=== PATIENT | female | born 1935 | race African-American/Black ===

== ENCOUNTER 2018-12-14 19:05 | Emergency (ER) | payer OTHER ==
[2018-12-14 19:18] VITALS: TEMP 98.8; BMI 27.4
--- NOTE | 2018-12-14 21:13 | PDOC ---
History of Present Illness - General Chief Complaint: Pain Stated Complaint: ABD PAIN Time Seen by Provider: 12/14/18 21:12 History Source: Patient Exam Limitations: No Limitations - History of Present Illness Initial Comments: Pt is an 83 yo F, with PMH of HTN (was taken off meds 3 years ago), NIDDM (on metformin), pacemaker (for bradycardia), and diverticulitis, who is presenting with LLQ abdominal pain and decreased appetite x4-5 days. Pt states she had nausea and a couple of bouts of loose stool since she has only been wanting to drink fluids, and not eat solid food, as that was making her abdominal pain worse. PT states the pain is constant, and also worsened by "driving in the car and hitting bumps". Pt states this episode feels similar to her prior episode of diverticulitis. PT denies any recent fevers/chills, headache, vision changes , syncope, chest pain, palpitations, SOB, vomiting, urinary symptoms, constipation, blood in BMs, or leg swelling. Allergies: NKDA PCP: Lore Mota Social: Pt denies any cigarette, alcohol, or drug use. Pt denies any recent travel or sick contacts. Surgical: hysterectomy Family: no relevant history. 12/14/18 23:01 Past History - Travel Traveled outside of the country in the last 30 days: No Close contact w/someone who was outside of country & ill: No - Past Medical History Allergies/Adverse Reactions: Allergies Allergy/AdvReac Type Severity Reaction Status Date / Time Sulfa (Sulfonamide Allergy Verified 12/16/18 17:41 Antibiotics) Home Medications: Ambulatory Orders Metformin HCl [Glucophage] 500 mg PO BIDAC 01/14/15 Aspirin [ASA -] 81 mg PO DAILY 12/15/18 Multivitamin [Multiple Vitamins] 1 each PO DAILY 12/15/18 Amox-Tr/K Cl [Augmentin - 875Mg Tablet] 1 tab PO TID #21 tablet 12/16/18 Ondansetron [Zofran *Odt*] 4 mg SL TID #21 od.tablet 12/16/18 Cardiac Disorders: Yes COPD: No Diabetes: Yes HTN: Yes - Surgical History Cardiac Surgery: Yes (ppm pacemaker) - Suicide/Smoking/Psychosocial Hx Smoking History: Never smoked Review of Systems - Review of Systems Able to Perform ROS?: Yes Is the patient limited Indonesian proficient: No Constitutional: Yes: Weight Stable. No: Chills, Diaphoresis, Fever, Loss of Appetite, Malaise, Weakness HEENTM: No: Recent change in vision, Nose Congestion, Throat Pain, Throat Swelling, Difficulty Swallowing Respiratory: No: Cough, Orthopnea, Shortness of Breath Cardiac (ROS): No: Chest Pain, Edema, Irregular Heart Rate, Lightheadedness, Palpitations, Syncope, Chest Tightness ABD/GI: Yes: See HPI, Diarrhea, Nausea, Poor Appetite, Vomiting, Abdominal cramping. No: Abdominal Distended, Blood Streaked Bowels, Constipated, Difficulty Swallowing, Poor Fluid Intake, Rectal Bleeding : No: Burning, Dysuria, Frequency, Hematuria, Pain, Urgency Musculoskeletal: No: Back Pain, Joint Pain, Muscle Pain, Muscle Weakness Integumentary: No: Rash Neurological: No: Headache, Numbness, Weakness, Unsteady Gait, Dizziness Psychiatric: No: Sleep Pattern Change, Change in Appetite Endocrine: No: Increased Urine, Change in Weight Hematologic/Lymphatic: No: Anemia, Blood Clots, Easy Bleeding, Easy Bruising All Other Systems: Reviewed and Negative *Physical Exam - Vital Signs Last Vital Signs Temp Pulse Resp BP Pulse Ox 98.8 F 77 18 180/92 H 99 12/14/18 19:15 12/14/18 19:15 12/14/18 19:15 12/14/18 19:15 12/14/18 19:15 - Physical Exam Comments: HTN on exam, pt afebrile. Pt in NAD, able to stand and lie on the bed comfortably. Overweight body habitus. Pt alert and oriented x3. 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 No midline spinal tenderness, step-offs, or crepitus. Head normocephalic, atraumatic. Eyes PERRLA, EOMI. Oropharynx without erythema or exudates, no LAD b/l. No nasal congestion, hearing intact. Clear heart sounds, S1/S2, no JVD, b/l pedal edema, or heart murmur. Clear lung sounds, no respiratory distress, wheezes, crackles, or accessory muscle use. No abdominal or CVA tenderness to palpation, no rebound, no guarding (no reproducible LLQ TTP). Abdomen soft, non-distended, and with normoactive bowel sounds. Skin without jaundice or rash. 12/14/18 23:11 ED Treatment Course - LABORATORY CBC & Chemistry Diagram: 12/14/18 22:00 12/14/18 22:00 Medical Decision Making - Medical Decision Making Pt was seen at bedside, also will be seen by attending Dr. Valdovinos. Pt presenting with complaints of LLQ abdominal pain, associated with nausea and loose stools. Pt has had episodes of diverticulitis in the past, and pt states this feels similar. Pt has limited risk factors for ischemic colitis (other than age and HTN), but pt also states her pain is worsened by eating. Will evaluate with labs and CT abd/pelvis with contrast (pending renal function labs) . Provided 1 L IV LR, 20 mg IV pepcid, 1 g ofirmev, and 4 mg IV zofran for improvement of discomfort and hydration. Will continue to reassess pt and monitor for symptomatic improvement. 12/14/18 23:12 CBC and CMP generally WNL Trop <.02 UA showed mild UTI, urine culture sent. Unlikely cause of pts symptoms, but will treat if CT negative for acute pathology. Ordered CT abd/pelvis with PO and IV contrast. Pt drinking contrast now. 12/14/18 23:14 PT was signed out to night team for CT scan and further monitoring. 12/17/18 09:05 *DC/Admit/Observation/Transfer Diagnosis at time of Disposition: Diverticulitis - Discharge Dispostion Disposition: HOME Condition at time of disposition: Improved - Referrals Referrals: Anup Camacho DO [Staff Physician] - Tacos Barr MD [Staff Physician] - ON STAFF,NOT [Primary Care Provider] - - Patient Instructions Printed Discharge Instructions: DI for Diverticulitis Additional Instructions: Drink pedialyte/Gatorade throughout the day to replace the water/electrolytes you are losing in the diarrhea. Take Tylenol over the counter for pain. Take as advised on label. I have sent two antibiotics to your pharmacy. Take as advised on label. Do not skip any doses. Do not stop early. Take with food. Follow up with your primary care doctor within 3 days. Your care is not complete until you follow up. Follow up with a cash register mechanic within 3 days. I have provided you with multiple referrals should you need them. Return to the Emergency Department for fever, vomiting, lightheadedness, chest pain, shortness of breath, vomiting blood, blood in stool, increasing pain despite Tylenol use, or any other new, worsening or concerning symptoms. - Post Discharge Activity
[2018-12-14] MEDS ORDERED: FAMOTIDINE 20 MG/50 ML IVPB 20 MG/50 ML MG IVPB ONE ×2 (21:15→21:43)
[2018-12-14] MEDS ORDERED: ACETAMINOPHEN 1000 MG/100 ML VIAL (NON FORMULARY) IVPB ONE (21:16)
[2018-12-14] MEDS ORDERED: LACTATED RINGERS SOLUTION 1000 ML INFUS.BAG IV STA (21:16)
[2018-12-14] MEDS ORDERED: ONDANSETRON 4 MG/2 ML VIAL IVPUSH ONE (21:16)
[2018-12-14] MEDS ORDERED: ACETAMINOPHEN INJECTION 100 ML IVPB ONE (21:42)
[2018-12-14] MEDS ORDERED: ONDANSETRON 4 MG/2 ML VIAL ONE (21:43)
[2018-12-14 22:12] LABS: HYALINE CASTS 4 /lpf (0-8); PH,URINE 5.5 (5.0-8.0); URINE APPEARANCE CLEAR; URINE BACTERIA 7.4 /hpf (NEGATIVE); URINE BILIRUBIN NEGATIVE (NEGATIVE); URINE COLOR YELLOW; URINE GLUCOSE (UA) NEGATIVE (NEGATIVE); URINE KETONE 1+ (NEGATIVE); URINE LEUK ESTERASE 2+ (NEGATIVE); URINE NITRITE NEGATIVE (NEGATIVE); URINE PROTEIN NEGATIVE (NEGATIVE); URINE RBC 1 /hpf (0-4); URINE UROBILINOGEN 0.2 mg/dL (0.2-1.0); URINE WBC 11 /hpf (0-5)
[2018-12-14 22:14] LABS: BASO % 1.2 % (0-2.0); EOS % 4.4 % (0-4.5); HEMOGLOBIN 12.7 GM/dL (10.7-15.3); LYMPH % 23.7 % (8-40); MCH 28.7 pg (25.7-33.7); MCHC 33.3 g/dl (32.0-36.0); MEAN CELL VOLUME 86.2 fl (80-96); MEAN PLT VOLUME 8.8 fl (7.5-11.1); MONO % 8.5 % (3.8-10.2); NEUT % 62.2 % (42.8-82.8); PLATELET COUNT 189 K/MM3 (134-434); RBC 4.41 M/mm3 (3.60-5.2); RDW 14.6 % (11.6-15.6); WHITE BLOOD COUNT 6.4 K/mm3 (4.0-10.0)
[2018-12-14 22:22] LABS: INR 1.19 (0.83-1.09); PROTHROMBIN TIME (PATIENT) 14.1 SEC (9.7-13.0)
[2018-12-14 22:41] LABS: ALBUMIN 3.8 g/dl (3.4-5.0); BILIRUBIN,TOTAL 0.6 mg/dL (0.2-1); BLOOD UREA NITROGEN 12.9 mg/dL (7-18); CALCIUM 9.2 mg/dL (8.5-10.1); CREATININE 0.7 mg/dL (0.55-1.3); POTASSIUM 3.6 mmol/L (3.5-5.1)
--- NOTE | 2018-12-14 22:57 | PDOC ---
Attending Attestation - Resident Resident Name: Juhi Barbaana - ED Attending Attestation I have performed the following: I have examined & evaluated the patient, The case was reviewed & discussed with the resident, I agree w/resident's findings & plan, Exceptions are as noted - HPI HPI: 12/14/18 22:51 83 y/o female c/o atrauamtic lower abd pain, most pronounced on the left, with anorexia and diarrhea for several days - Physicial Exam PE: 12/14/18 22:52 pt is awake, alert, well nourished, in no distress nc, atr perrla, eomi, no icterus cta rrr abd-sft, nd, + mild lq tp, no /r - Medical Decision Making 12/14/18 22:57 Patient is an 83-year-old female who presents with atraumatic lower abdominal pain, with tenderness in left lower quadrant, associated with anorexia and several loose watery stools. Differential diagnosis includes ischemic colitis versus diverticulitis versus gastroenteritis. Will hydrate. We'll obtain CBC/CMP /UA. Will obtain CT that and pelvis with by mouth contrast. Will reassess.
--- NOTE | 2018-12-15 02:24 | PDOC ---
*Physical Exam - Vital Signs Last Vital Signs Temp Pulse Resp BP Pulse Ox 98.8 F 68 20 173/74 H 100 12/14/18 19:15 12/14/18 23:55 12/14/18 23:55 12/14/18 23:55 12/14/18 23:55 <Cathryn Ruiz - Last Filed: 12/15/18 04:13> - Vital Signs Last Vital Signs Temp Pulse Resp BP Pulse Ox 98.8 F 68 20 173/74 H 100 12/14/18 19:15 12/14/18 23:55 12/14/18 23:55 12/14/18 23:55 12/14/18 23:55 <TavonMiguel AngelEdith - Last Filed: 12/15/18 21:42> ED Treatment Course - LABORATORY CBC & Chemistry Diagram: 12/14/18 22:00 12/14/18 22:00 - ADDITIONAL ORDERS Additional order review: Laboratory Results 12/14/18 12/14/18 12/14/18 22:03 22:00 22:00 PT with INR 14.10 H INR 1.19 H Sodium Potassium Chloride Carbon Dioxide Anion Gap BUN Creatinine Est GFR (CKD-EPI)AfAm Est GFR (CKD-EPI)NonAf Random Glucose Calcium Magnesium 2.1 Total Bilirubin AST ALT Alkaline Phosphatase Creatine Kinase Creatine Kinase Index CK-MB (CK-2) Troponin I Total Protein Albumin Lipase Urine Color Yellow Urine Appearance Clear Urine pH 5.5 Ur Specific [place] 1.018 Urine Protein Negative Urine Glucose (UA) Negative Urine Ketones 1+ H Urine Blood Negative Urine Nitrite Negative Urine Bilirubin Negative Urine Urobilinogen 0.2 Ur Leukocyte Esterase 2+ H Urine WBC (Auto) 11 Urine RBC (Auto) 1 Urine Casts (Auto) 4 U Epithel Cells (Auto) 2.0 Urine Bacteria (Auto) 7.4 Blood Type Antibody Screen 12/14/18 12/14/18 12/14/18 22:00 22:00 22:00 PT with INR INR Sodium 140 Potassium 3.6 Chloride 104 Carbon Dioxide 27 Anion Gap 9 BUN 12.9 Creatinine 0.7 Est GFR (CKD-EPI)AfAm 93.52 Est GFR (CKD-EPI)NonAf 80.69 Random Glucose 92 Calcium 9.2 Magnesium Total Bilirubin 0.6 AST 21 ALT 19 Alkaline Phosphatase 64 Creatine Kinase Creatine Kinase Index CK-MB (CK-2) Troponin I Total Protein 7.0 Albumin 3.8 Lipase 77 Urine Color Urine Appearance Urine pH Ur Specific [place] Urine Protein Urine Glucose (UA) Urine Ketones Urine Blood Urine Nitrite Urine Bilirubin Urine Urobilinogen Ur Leukocyte Esterase Urine WBC (Auto) Urine RBC (Auto) Urine Casts (Auto) U Epithel Cells (Auto) Urine Bacteria (Auto) Blood Type O POSITIVE Antibody Screen Negative 12/14/18 22:00 PT with INR INR Sodium Potassium Chloride Carbon Dioxide Anion Gap BUN Creatinine Est GFR (CKD-EPI)AfAm Est GFR (CKD-EPI)NonAf Random Glucose Calcium Magnesium Total Bilirubin AST ALT Alkaline Phosphatase Creatine Kinase 161 Creatine Kinase Index 1.3 CK-MB (CK-2) 2.2 Troponin I < 0.02 Total Protein Albumin Lipase Urine Color Urine Appearance Urine pH Ur Specific [place] Urine Protein Urine Glucose (UA) Urine Ketones Urine Blood Urine Nitrite Urine Bilirubin Urine Urobilinogen Ur Leukocyte Esterase Urine WBC (Auto) Urine RBC (Auto) Urine Casts (Auto) U Epithel Cells (Auto) Urine Bacteria (Auto) Blood Type Antibody Screen 12/14/18 22:00 RBC 4.41 MCV 86.2 MCHC 33.3 RDW 14.6 MPV 8.8 Neutrophils % 62.2 Lymphocytes % 23.7 Monocytes % 8.5 Eosinophils % 4.4 Basophils % 1.2 - Medications Given in the ED: ED Medications Discontinued Medications Generic Name Dose Route Start Last Admin Trade Name Adeola PRN Reason Stop Dose Admin Acetaminophen 1,000 mg 12/14/18 21:16 12/14/18 22:52 Ofirmev Injection - IVPB 12/14/18 21:17 1,000 mg ONCE ONE Administration Famotidine/Sodium Chloride 20 mg in 50 mls @ 100 mls/hr 12/14/18 21:15 22:00 Pepcid 20 Mg Premixed Ivpb - IVPB 12/14/18 21:44 100 mls/hr ONCE ONE Administration Lactated Ringer's 1,000 ml 12/14/18 21:16 12/14/18 22:00 Lactated Ringers Solution IV 12/14/18 21:17 1,000 ml ONCE STA Administration Ondansetron HCl 4 mg 12/14/18 21:16 12/14/18 22:00 Zofran Injection IVPUSH 12/14/18 21:17 4 mg ONCE ONE Administration <Ruiz,Cathryn - Last Filed: 12/15/18 04:13> - LABORATORY CBC & Chemistry Diagram: 12/14/18 22:00 12/14/18 22:00 - ADDITIONAL ORDERS Additional order review: Laboratory Results 12/14/18 12/14/18 12/14/18 22:03 22:00 22:00 PT with INR 14.10 H INR 1.19 H Sodium Potassium Chloride Carbon Dioxide Anion Gap BUN Creatinine Est GFR (CKD-EPI)AfAm Est GFR (CKD-EPI)NonAf Random Glucose Calcium Magnesium 2.1 Total Bilirubin AST ALT Alkaline Phosphatase Creatine Kinase Creatine Kinase Index CK-MB (CK-2) Troponin I Total Protein Albumin Lipase Urine Color Yellow Urine Appearance Clear Urine pH 5.5 Ur Specific [place] 1.018 Urine Protein Negative Urine Glucose (UA) Negative Urine Ketones 1+ H Urine Blood Negative Urine Nitrite Negative Urine Bilirubin Negative Urine Urobilinogen 0.2 Ur Leukocyte Esterase 2+ H Urine WBC (Auto) 11 Urine RBC (Auto) 1 Urine Casts (Auto) 4 U Epithel Cells (Auto) 2.0 Urine Bacteria (Auto) 7.4 Blood Type Antibody Screen 12/14/18 12/14/18 12/14/18 22:00 22:00 22:00 PT with INR INR Sodium 140 Potassium 3.6 Chloride 104 Carbon Dioxide 27 Anion Gap 9 BUN 12.9 Creatinine 0.7 Est GFR (CKD-EPI)AfAm 93.52 Est GFR (CKD-EPI)NonAf 80.69 Random Glucose 92 Calcium 9.2 Magnesium Total Bilirubin 0.6 AST 21 ALT 19 Alkaline Phosphatase 64 Creatine Kinase Creatine Kinase Index CK-MB (CK-2) Troponin I Total Protein 7.0 Albumin 3.8 Lipase 77 Urine Color Urine Appearance Urine pH Ur Specific [place] Urine Protein Urine Glucose (UA) Urine Ketones Urine Blood Urine Nitrite Urine Bilirubin Urine Urobilinogen Ur Leukocyte Esterase Urine WBC (Auto) Urine RBC (Auto) Urine Casts (Auto) U Epithel Cells (Auto) Urine Bacteria (Auto) Blood Type O POSITIVE Antibody Screen Negative 12/14/18 22:00 PT with INR INR Sodium Potassium Chloride Carbon Dioxide Anion Gap BUN Creatinine Est GFR (CKD-EPI)AfAm Est GFR (CKD-EPI)NonAf Random Glucose Calcium Magnesium Total Bilirubin AST ALT Alkaline Phosphatase Creatine Kinase 161 Creatine Kinase Index 1.3 CK-MB (CK-2) 2.2 Troponin I < 0.02 Total Protein Albumin Lipase Urine Color Urine Appearance Urine pH Ur Specific [place] Urine Protein Urine Glucose (UA) Urine Ketones Urine Blood Urine Nitrite Urine Bilirubin Urine Urobilinogen Ur Leukocyte Esterase Urine WBC (Auto) Urine RBC (Auto) Urine Casts (Auto) U Epithel Cells (Auto) Urine Bacteria (Auto) Blood Type Antibody Screen 12/14/18 22:00 RBC 4.41 MCV 86.2 MCHC 33.3 RDW 14.6 MPV 8.8 Neutrophils % 62.2 Lymphocytes % 23.7 Monocytes % 8.5 Eosinophils % 4.4 Basophils % 1.2 - Medications Given in the ED: ED Medications Discontinued Medications Generic Name Dose Route Start Last Admin Trade Name Adeola PRN Reason Stop Dose Admin Acetaminophen 1,000 mg 12/14/18 21:16 12/14/18 22:52 Ofirmev Injection - IVPB 12/14/18 21:17 1,000 mg ONCE ONE Administration Famotidine/Sodium Chloride 20 mg in 50 mls @ 100 mls/hr 12/14/18 21:15 22:00 Pepcid 20 Mg Premixed Ivpb - IVPB 12/14/18 21:44 100 mls/hr ONCE ONE Administration Lactated Ringer's 1,000 ml 12/14/18 21:16 12/14/18 22:00 Lactated Ringers Solution IV 12/14/18 21:17 1,000 ml ONCE STA Administration Ondansetron HCl 4 mg 12/14/18 21:16 12/14/18 22:00 Zofran Injection IVPUSH 12/14/18 21:17 4 mg ONCE ONE Administration <Edith Montes De Oca - Last Filed: 12/15/18 21:42> Medical Decision Making - Medical Decision Making 12/15/18 03:10 Patient Name: RAJEEV NAIDU THIS IS A PRELIMINARY REPORT FROM [facility] DATE OF SERVICE: 2018-12-15 00:59:51 IMAGES: [id number] EXAM: CT ABDOMEN WITH CONTRAST AND CT PELVIS WITH CONTRAST HISTORY: 83-Year-Old Female Assess For Diverticulitis. COMPARISON: None. CONTRAST: 94 mL of Omnipaque intravenous contrast and oral contrast was administered FINDINGS: There are 2 pacing wires identified on the palm gatherer views. Mild basilar atelectasis and scarring. Left lower lobe bulla. Mild liver steatosis. Moderate gallbladder distention. Pancreas spleen adrenal glands and left kidney appear unremarkable. Right kidney peripelvic cysts. No nephrolithiasis. No hydroureter. Moderate arteriosclerosis of the abdominal and pelvic vasculature. Small hiatal hernia with mild nonspecific lower esophageal wall thickening most likely due to esophagitis. Stomach small bowel and appendix appear unremarkable. Moderate nonspecific circumferential wall thickening of the sigmoid colon on axial image 89 and sagittal image 58 and coronal image 53 is most likely due to acute diverticulitis of the sigmoid colon with mild pericolonic fluid from infection and other disease including a mass in the sigmoid colon cannot be excluded. No free air. No abscess. Status post hysterectomy. Moderate bladder distention. Bridging lower thoracic osteophytes. Moderate to severe degenerative disc disease in the lower lumbar spine. IMPRESSION: Moderate nonspecific circumferential wall thickening of the sigmoid colon is most likely due to acute diverticulitis of the sigmoid colon with mild pericolonic fluid from infection and other disease including a mass in the sigmoid colon cannot be excluded. Small hiatal hernia with mild nonspecific lower esophageal wall thickening most likely due to esophagitis 12/15/18 04:13 Pt refusing to stay in the hospital; she wants a trial of PO abx; she will return if she is unable to tolerate PO intake. <Cathryn Ruiz - Last Filed: 12/15/18 04:13> - Medical Decision Making Pt signed out to me by Dr. Valdovinos, see his note. 83 year old female with PMH diverticulitis, HTN, DM presented to ED for lower abdominal pain associated with diarrhea. Initial Vital Signs Temp Pulse Resp BP Pulse Ox 98.8 F 77 18 180/92 H 99 12/14/18 19:15 12/14/18 19:15 12/14/18 19:15 12/14/18 19:15 12/14/18 19:15 Afebrile. No tachycardia. No tachypnea. Hypertensive. No hypoxia on room air. Vital Signs Pulse Rate 68 12/14/18 23:55 Respiratory Rate 20 12/14/18 23:55 Blood Pressure 173/74 H 12/14/18 23:55 O2 Sat by Pulse Oximetry (%) 100 12/14/18 23:55 CBC WBC 6.4 K/mm3 (4.0-10.0) 12/14/18 22:00 RBC 4.41 M/mm3 (3.60-5.2) 12/14/18 22:00 Hgb 12.7 GM/dL (10.7-15.3) 12/14/18 22:00 Hct 38.0 % (32.4-45.2) 12/14/18 22:00 MCV 86.2 fl (80-96) 12/14/18 22:00 MCH 28.7 pg (25.7-33.7) 12/14/18 22:00 MCHC 33.3 g/dl (32.0-36.0) 12/14/18 22:00 RDW 14.6 % (11.6-15.6) 12/14/18 22:00 Plt Count 189 K/MM3 (134-434) 12/14/18 22:00 MPV 8.8 fl (7.5-11.1) 12/14/18 22:00 Absolute Neuts (auto) 4.0 K/mm3 (1.5-8.0) 12/14/18 22:00 Neutrophils % 62.2 % (42.8-82.8) 12/14/18 22:00 Lymphocytes % 23.7 % (8-40) 12/14/18 22:00 Monocytes % 8.5 % (3.8-10.2) 12/14/18 22:00 Eosinophils % 4.4 % (0-4.5) 12/14/18 22:00 Basophils % 1.2 % (0-2.0) 12/14/18 22:00 Nucleated RBC % 0 % (0-0) 12/14/18 22:00 No leukocytosis. No anemia. CMP Sodium 140 mmol/L (136-145) 12/14/18 22:00 Potassium 3.6 mmol/L (3.5-5.1) 12/14/18 22:00 Chloride 104 mmol/L (98-107) 12/14/18 22:00 Carbon Dioxide 27 mmol/L (21-32) 12/14/18 22:00 Anion Gap 9 MMOL/L (8-16) 12/14/18 22:00 BUN 12.9 mg/dL (7-18) 12/14/18 22:00 Creatinine 0.7 mg/dL (0.55-1.3) 12/14/18 22:00 Est GFR (CKD-EPI)AfAm 93.52 12/14/18 22:00 Est GFR (CKD-EPI)NonAf 80.69 12/14/18 22:00 Random Glucose 92 mg/dL (74-106) 12/14/18 22:00 Calcium 9.2 mg/dL (8.5-10.1) 12/14/18 22:00 Magnesium 2.1 mg/dL (1.8-2.4) 12/14/18 22:00 Total Bilirubin 0.6 mg/dL (0.2-1) 12/14/18 22:00 AST 21 U/L (15-37) 12/14/18 22:00 ALT 19 U/L (13-61) 12/14/18 22:00 Alkaline Phosphatase 64 U/L (45-117) 12/14/18 22:00 Creatine Kinase 161 U/L (26-192) 12/14/18 22:00 Creatine Kinase Index 1.3 % (0.0-5.0) 12/14/18 22:00 CK-MB (CK-2) 2.2 ng/mL (0.5-3.6) 12/14/18 22:00 Troponin I < 0.02 ng/ml (0.00-0.05) 12/14/18 22:00 Total Protein 7.0 g/dl (6.4-8.2) 12/14/18 22:00 Albumin 3.8 g/dl (3.4-5.0) 12/14/18 22:00 Lipase 77 U/L (73-393) 12/14/18 22:00 No electrolyte abnormalities. No FRANCISCO. NO transaminitis. Troponin wnl. Lipase wnl. Urine Test Results Urine Color Yellow 12/14/18 22:03 Urine Appearance Clear 12/14/18 22:03 Urine pH 5.5 (5.0-8.0) 12/14/18 22:03 Ur Specific [place] 1.018 (1.010-1.035) 12/14/18 22:03 Urine Protein Negative (NEGATIVE) 12/14/18 22:03 Urine Glucose (UA) Negative (NEGATIVE) 12/14/18 22:03 Urine Ketones 1+ (NEGATIVE) H 12/14/18 22:03 Urine Blood Negative (NEGATIVE) 12/14/18 22:03 Urine Nitrite Negative (NEGATIVE) 12/14/18 22:03 Urine Bilirubin Negative (NEGATIVE) 12/14/18 22:03 Ur Leukocyte Esterase 2+ (NEGATIVE) H 12/14/18 22:03 Positive for UTI. -Will wait on CT report for antibiotic choice. Pending CT imaging report. 12/15/18 04:08 CXR shows no infiltrate, with large heart. -Pending official report. CT report: Name: [facility] DEPARTMENT OF RADIOLOGY Phys: Juliocesar Valdovinos MD : 1935 Age: 83 Sex: F [facility] Acct: [id number] Loc: [address] Exam Date: 12/15/18 Status: [facility] [place] [place] [address] Unit Number: [id number] EXAM#: TYPE/EXAM: RESULT: [id number] CT/ABDOMEN PELVIS CT WITH CONTR HISTORY PROVIDED: Left lower quadrant pain. Sequential axial images were obtained from the domes of the diaphragms through the symphysis pubis following the administration of both oral and intravenous contrast material. The lung bases are clear. The liver is normal in size. It is mildly hypodense in texture consistent with diffuse fatty infiltration. No mass lesions identified within the liver. The spleen, pancreas, adrenal glands and kidneys demonstrate no significant abnormalities. The gallbladder is mildly distended without evidence of calculi. There is no evidence of intra- abdominal or retroperitoneal lymphadenopathy or fluid collections. There is no evidence of pneumoperitoneum, bowel obstruction or intra-abdominal abscess. There is no CT evidence of acute appendicitis. There is marked thickening and irregularity of the sigmoid colon with inflammatory changes in the adjacent mesenteric fat. Multiple diverticula are present and this is consistent with acute sigmoid diverticulitis. No abscess is associated with this process. Clinical correlation and follow-up is now recommended. Examination of the pelvis demonstrates no evidence of pelvic masses, fluid collections or lymphadenopathy. The uterus has been removed. There is no evidence of acute bony pathology. IMPRESSION: Findings consistent with acute sigmoid diverticulitis without abscess formation. Clinical correlation and follow-up recommended. Please see above discussion. Reported By : Landon Yun MD 12/15/18 [id number] I discussed the case with Dr. Robert, IM Attending, who suggested outpatient PO antibiotics. I discussed the options with the patient and her , they stated they prefer to be discharged. Return precautions given to patient. Discharge medications listed below. 12/15/18 21:40 Follow up: Official CXR report: Name: [facility] DEPARTMENT OF RADIOLOGY Phys: Va Barba RESIDENT : 1935 Age: 83 Sex: F [facility] Acct: [id number] Loc: [address] Exam Date: 12/14/18 [place] [place] [address] Unit Number: [id number] ACCESSION # : [id number] EXAM#: TYPE/EXAM: RESULT: RAD/CHEST X-RAY PORTABLE* Chest: Pain. There are no prior studies for comparison. A single view of the chest reveals clear well-aerated lungs, sharp angles and intact bones and soft tissues. There is a large heart, normal aorta and normal erum. There is a left- sided pacemaker with unattached right pacemaker wires. The soft tissues are intact. Impression: No acute chest pathology. Unattached right pacemaker wires. Attached left pacemaker. Clear lungs. Correlation recommended. Reported By: Chris Rodriguez MD 12/15/18718 <Edith Montes De Oca - Last Filed: 12/15/18 21:42> *DC/Admit/Observation/Transfer <Cathryn Ruiz - Last Filed: 12/15/18 04:13> - Discharge Dispostion Decision to Admit order: No <Edith Montes De Oca - Last Filed: 12/15/18 21:42> Diagnosis at time of Disposition: Diverticulitis - Discharge Dispostion Disposition: HOME Condition at time of disposition: Improved - Prescriptions Prescriptions: levoFLOXacin [Levaquin] 750 mg PO DAILY #10 tab metroNIDAZOLE [Flagyl -] 500 mg PO TID #30 tablet - Referrals Referrals: ON STAFF,NOT [Primary Care Provider] - Tacos Barr MD [Staff Physician] - Anup Camacho DO [Staff Physician] - - Patient Instructions Printed Discharge Instructions: DI for Diverticulitis Additional Instructions: Drink pedialyte/Gatorade throughout the day to replace the water/electrolytes you are losing in the diarrhea. Take Tylenol over the counter for pain. Take as advised on label. I have sent two antibiotics to your pharmacy. Take as advised on label. Do not skip any doses. Do not stop early. Take with food. Follow up with your primary care doctor within 3 days. Your care is not complete until you follow up. Follow up with a apple sorter within 3 days. I have provided you with multiple referrals should you need them. Return to the Emergency Department for fever, vomiting, lightheadedness, chest pain, shortness of breath, vomiting blood, blood in stool, increasing pain despite Tylenol use, or any other new, worsening or concerning symptoms. - Post Discharge Activity
[2018-12-15 04:59] VITALS: BP 150/76; PULSE 63
--- NOTE | 2018-12-15 16:37 | EKG ---
Test Reason : Blood Pressure : / mmHG Vent. Rate : 067 BPM Atrial Rate : 067 BPM P-R Int : 162 ms QRS Dur : 088 ms QT Int : 448 ms P-R-T Axes : 051 -18 008 degrees QTc Int : 473 ms NORMAL SINUS RHYTHM POSSIBLE LEFT ATRIAL ENLARGEMENT LEFT VENTRICULAR HYPERTROPHY ANTEROSEPTAL INFARCT , AGE UNDETERMINED ABNORMAL ECG NO PREVIOUS ECGS AVAILABLE Confirmed by PONCHO KELLY MD ([id number]) on 12/15/2018 4:37:18 PM Referred By: Confirmed By:PONCHO KELLY MD
== END 2018-12-15 05:00 | disposition home or self-care (01) ==
LOC: SUPCPDRO 19:05 → JER 19:05
PROC: 3E033GC Introduction of Other Therapeutic Substance into Peripheral Vein, Percutaneous Approach (ICD-10-PCS; principal; 2018-12-14)
PROC: 3E03329 Introduction of Other Anti-infective into Peripheral Vein, Percutaneous Approach (ICD-10-PCS; 2018-12-14)
PROC: 3E033NZ Introduction of Analgesics, Hypnotics, Sedatives into Peripheral Vein, Percutaneous Approach (ICD-10-PCS; 2018-12-14)
PROC: 3E033GC Introduction of Other Therapeutic Substance into Peripheral Vein, Percutaneous Approach (ICD-10-PCS; 2018-12-14)
DX: K57.32 Diverticulitis of large intestine without perforation or abscess without bleeding (principal); I10 Essential (primary) hypertension; E11.9 Type 2 diabetes mellitus without complications; Z79.84 Long term (current) use of oral hypoglycemic drugs
CPT/HCPCS: 36415; 71045-TC-FY; 74177-TC; 80053; 81003; 82550; 82553; 83690; 83735; 84484; 85025; 85610; 86850; 86900; 86901; 87077; 87086; 93005; 93010; 96365; 96366; 96367; 96375; 99283-25; J0131

== ENCOUNTER 2018-12-16 17:29 | Emergency (ER) | payer OTHER, BC ==
[2018-12-16 17:42] VITALS: BMI 31.1
--- NOTE | 2018-12-16 17:42 | PDOC ---
Rapid Medical Evaluation Time Seen by Provider: 12/16/18 17:31 Medical Evaluation: Allergies Allergy/AdvReac Type Severity Reaction Status Date / Time Sulfa (Sulfonamide Allergy Verified 12/14/18 19:18 Antibiotics) I have performed a brief in-person evaluation of this patient. The patient presents with a chief complaint of: c/o Nausea and 2 episodes of NBNB emesis; was just discharged from ED yesterday for acute diverticulitis; patient was placed on abx; denies abdominal pain Pertinent physical exam findings: NAD I have ordered the following: Nothing The patient will proceed to the ED for further evaluation. 12/16/18 17:39
[2018-12-16 18:23] LABS: BASO % 1.1 % (0-2.0); EOS % 2.6 % (0-4.5); HEMATOCRIT 40.1 % (32.4-45.2); HEMOGLOBIN 13.3 GM/dL (10.7-15.3); LYMPH % 18.9 % (8-40); MCH 28.5 pg (25.7-33.7); MCHC 33.1 g/dl (32.0-36.0); MEAN PLT VOLUME 8.8 fl (7.5-11.1); MONO % 7.2 % (3.8-10.2); NEUT % 70.2 % (42.8-82.8); PLATELET COUNT 211 K/MM3 (134-434); RBC 4.66 M/mm3 (3.60-5.2); RDW 14.4 % (11.6-15.6); WHITE BLOOD COUNT 5.8 K/mm3 (4.0-10.0)
[2018-12-16 18:50] LABS: ALBUMIN 3.9 g/dl (3.4-5.0); BILIRUBIN,TOTAL 0.3 mg/dL (0.2-1); BLOOD UREA NITROGEN 11.6 mg/dL (7-18); CALCIUM 9.4 mg/dL (8.5-10.1); CREATININE 0.9 mg/dL (0.55-1.3); POTASSIUM 3.8 mmol/L (3.5-5.1); TOT PROT 7.5 g/dl (6.4-8.2)
--- NOTE | 2018-12-16 20:06 | PDOC ---
History of Present Illness - General Chief Complaint: Nausea/Vomiting Stated Complaint: REACTION TO ANTIBIOTICS Time Seen by Provider: 12/16/18 17:31 History Source: Patient, Old Records Exam Limitations: No Limitations - History of Present Illness Initial Comments: 12/16/18 20:27 HISTORY OF PRESENT ILLNESS: This is an 83-year-old woman past medical history of hypertension currently being treated for diverticulitis presents emergency department for evaluation of vomiting after taking Levaquin. Patient reports she was seen and treated here 2 days ago for diverticulitis and was treated with outpatient antibiotic therapy. Patient reports no difficulties will taking the metronidazole every time she takes her left ofloxacin begins to feel nauseous and has had 2 episodes of nonbilious nonbloody vomiting after taking the Levaquin. Patient states she is able tolerate fluids but can't handle the nauseous feeling. She denies any fevers, chills, headaches, chest pain, shortness of breath. Otherwise patient reports improvement in her symptoms since starting outpatient therapy for diverticulitis. No recent travel or sick contacts. PAST MEDICAL HISTORY: Denies past medical history SURGICAL HISTORY: Denies ALLERGIES: Sulfa REVIEW OF SYSTEMS General/Constitutional: Denies fever or chills. Denies weakness, weight change. HEENT: Denies change in vision. Denies ear pain or discharge. Denies sore throat. Cardiovascular: Denies chest pain or shortness of breath. Respiratory: Denies cough, wheezing, or hemoptysis. Gastrointestinal: see HPI Genitourinary: Denies dysuria, frequency, or change in urination. Musculoskeletal: Denies joint or muscle swelling or pain. Denies neck or back pain. Skin and breasts: Denies rash or easy bruising. Neurologic: Denies headache, vertigo, loss of consciousness, or loss of sensation. Psychiatric: Denies depression or anxiety. Endocrine: Denies increased thirst. Denies abnormal weight change. Hematologic/Lymphatic: Denies anemia, easy bleeding, or history of blood clots. Allergic/Immunologic: Denies hives or skin allergy. Denies latex allergy. PHYSICAL EXAM General Appearance: Well-appearing, appropriately dressed. No apparent distress , no intoxication. Respiratory/Chest: Lungs CTAB. No shortness of breath, chest tenderness, respiratory distress, accessory muscle use. No crackles, rales, rhonchi, stridor , wheezing, dullness Cardiovascular: RRR. S1, S2. No JVD, murmur, bradycardia, tachycardia. Vascular Pulses: Dorsalis-Pedis (R): 2+, Dorsalis-Pedis (L): 2+ Gastrointestinal/Abdominal: Normal bowel sounds. Abdomen soft, non-distended. No tenderness or rebound tenderness. No organomegaly, pulsatile mass, guarding, hernia, hepatomegaly, splenomegaly. Past History - Past Medical History Allergies/Adverse Reactions: Allergies Allergy/AdvReac Type Severity Reaction Status Date / Time Sulfa (Sulfonamide Allergy Verified 12/16/18 17:41 Antibiotics) Home Medications: Ambulatory Orders Metformin HCl [Glucophage] 500 mg PO BIDAC 01/14/15 Aspirin [ASA -] 81 mg PO DAILY 12/15/18 Multivitamin [Multiple Vitamins] 1 each PO DAILY 12/15/18 Amox-Tr/K Cl [Augmentin - 875Mg Tablet] 1 tab PO TID #21 tablet 12/16/18 Ondansetron [Zofran *Odt*] 4 mg SL TID #21 od.tablet 12/16/18 Cardiac Disorders: Yes COPD: No Diabetes: Yes HTN: Yes - Surgical History Cardiac Surgery: Yes (ppm pacemaker) - Suicide/Smoking/Psychosocial Hx Smoking History: Never smoked *Physical Exam - Vital Signs Last Vital Signs Temp Pulse Resp BP Pulse Ox 97.9 F 68 16 177/83 H 99 12/16/18 17:37 12/16/18 17:37 12/16/18 17:37 12/16/18 17:37 12/16/18 17:37 ED Treatment Course - LABORATORY CBC & Chemistry Diagram: 12/16/18 18:08 12/16/18 18:08 - ADDITIONAL ORDERS Additional order review: Laboratory Results 12/16/18 18:08 Sodium 139 Potassium 3.8 Chloride 101 Carbon Dioxide 29 Anion Gap 9 BUN 11.6 Creatinine 0.9 Est GFR (CKD-EPI)AfAm 69.01 Est GFR (CKD-EPI)NonAf 59.55 Random Glucose 113 H Calcium 9.4 Total Bilirubin 0.3 AST 27 ALT 23 Alkaline Phosphatase 65 Total Protein 7.5 Albumin 3.9 12/16/18 18:08 RBC 4.66 MCV 86.0 MCHC 33.1 RDW 14.4 MPV 8.8 Neutrophils % 70.2 Lymphocytes % 18.9 D Monocytes % 7.2 Eosinophils % 2.6 Basophils % 1.1 Medical Decision Making - Medical Decision Making 12/16/18 20:29 A/P: 83-year-old woman with nausea and vomiting after taking Levaquin Labs per RN the Normal saline 1 L IV bolus Zofran 4 mg IV push likely discharge with prescription for Augmentin to replace Levaquin. 12/16/18 22:27 Patient is free of symptoms after receiving 1 dose of Zofran. I will discharge the patient home with instructions to stop her Levaquin to start taking Augmentin 3 times a day for 7 days. Patient has been given a prescription for Zofran to be taken 3 times a day as needed for nausea. Strict return precautions have been provided regarding the patient's diverticulitis from previous ED visit. I discussed the physical exam findings, ancillary test results and final diagnoses with the patient. I answered all of the patient's questions. The patient was satisfied with the care received and felt comfortable with the discharge plan and treatment plan. The patient will call their primary care physician within 24 hours to arrange follow-up and will return to the Emergency Department with any new, persistent or worsening symptoms. Portions of this note have been documented using voice recognition software. As a result, errors may occur in the sculpture instructor process. Effort has been made to correct all grammatical and sculpture instructor error, but some may have been missed. *DC/Admit/Observation/Transfer Diagnosis at time of Disposition: Nausea and vomiting in adult - Discharge Dispostion Disposition: HOME Condition at time of disposition: Stable Decision to Admit order: No - Prescriptions Prescriptions: Amox-Tr/K Cl [Augmentin - 875Mg Tablet] 1 tab PO TID #21 tablet Ondansetron [Zofran *Odt*] 4 mg SL TID #21 od.tablet - Referrals Referrals: ON STAFF,NOT [Primary Care Provider] - - Patient Instructions Additional Instructions: Stop taking the levofloxacin. Continue metronidazole as previously prescribed. Start taking Augmentin 1 tablet 3 times a day until all medications have been completed. You been prescribed Zofran for nausea. Please one tablet on your tongue up to 3 times a day as needed for any nausea. If you are not nauseous you do not need to take this medication. Your emergency department visit is incomplete and to follow-up with your regular doctor. Return to emergency department for any new or worsening symptoms. Thank you very much for choosing us to provide your emergent health care needs. - Post Discharge Activity
--- NOTE | 2018-12-16 20:17 | PDOC ---
*Physical Exam - Vital Signs Last Vital Signs Temp Pulse Resp BP Pulse Ox 97.9 F 68 16 177/83 H 99 12/16/18 17:37 12/16/18 17:37 12/16/18 17:37 12/16/18 17:37 12/16/18 17:37 ED Treatment Course - LABORATORY CBC & Chemistry Diagram: 12/16/18 18:08 12/16/18 18:08 - ADDITIONAL ORDERS Additional order review: Laboratory Results 12/16/18 18:08 Sodium 139 Potassium 3.8 Chloride 101 Carbon Dioxide 29 Anion Gap 9 BUN 11.6 Creatinine 0.9 Est GFR (CKD-EPI)AfAm 69.01 Est GFR (CKD-EPI)NonAf 59.55 Random Glucose 113 H Calcium 9.4 Total Bilirubin 0.3 AST 27 ALT 23 Alkaline Phosphatase 65 Total Protein 7.5 Albumin 3.9 12/16/18 18:08 RBC 4.66 MCV 86.0 MCHC 33.1 RDW 14.4 MPV 8.8 Neutrophils % 70.2 Lymphocytes % 18.9 D Monocytes % 7.2 Eosinophils % 2.6 Basophils % 1.1 Medical Decision Making - Medical Decision Making 12/16/18 20:17 Patient seen by the advanced practice provider under my direct supervision. Ancillary testing reviewed as necessary. I agree with plan as outlined by the advanced practice provider. *DC/Admit/Observation/Transfer Diagnosis at time of Disposition: Nausea and vomiting in adult - Discharge Dispostion Disposition: HOME Condition at time of disposition: Stable - Prescriptions Prescriptions: Amox-Tr/K Cl [Augmentin - 875Mg Tablet] 1 tab PO TID #21 tablet Ondansetron [Zofran *Odt*] 4 mg SL TID #21 od.tablet - Referrals Referrals: ON STAFF,NOT [Primary Care Provider] - - Patient Instructions Additional Instructions: Stop taking the levofloxacin. Continue metronidazole as previously prescribed. Start taking Augmentin 1 tablet 3 times a day until all medications have been completed. You been prescribed Zofran for nausea. Please one tablet on your tongue up to 3 times a day as needed for any nausea. If you are not nauseous you do not need to take this medication. Your emergency department visit is incomplete and to follow-up with your regular doctor. Return to emergency department for any new or worsening symptoms. Thank you very much for choosing us to provide your emergent health care needs. - Post Discharge Activity
[2018-12-16] MEDS ORDERED: SODIUM CHLORIDE 1,000 ML IV STA (20:24)
[2018-12-16] MEDS ORDERED: ONDANSETRON 4 MG/2 ML VIAL IVPUSH ONE (20:24)
[2018-12-16 20:29] VITALS: PULSE 67
[2018-12-16] MEDS ORDERED: ONDANSETRON 4 MG/2 ML VIAL ONE (20:31)
[2018-12-16 23:07] VITALS: BP 187/79; TEMP 97.8
== END 2018-12-16 22:50 | disposition home or self-care (01) ==
LOC: JER 17:29
PROC: 3E0337Z Introduction of Electrolytic and Water Balance Substance into Peripheral Vein, Percutaneous Approach (ICD-10-PCS; principal; 2018-12-16)
PROC: 3E033GC Introduction of Other Therapeutic Substance into Peripheral Vein, Percutaneous Approach (ICD-10-PCS; 2018-12-16)
DX: R11.2 Nausea with vomiting, unspecified (principal); T36.8X5A Adverse effect of other systemic antibiotics, initial encounter; Y92.018 Other place in single-family (private) house as the place of occurrence of the external cause; K57.92 Diverticulitis of intestine, part unspecified, without perforation or abscess without bleeding
CPT/HCPCS: 36415; 80053; 85025; 96361; 96374; 99283-25; J7030

== ENCOUNTER 2023-09-14 18:45 | Emergency (ER) | payer OTHER, BC ==
[2023-09-14 19:03] VITALS: BP 166/60; PULSE 50; RESP 16; TEMP 98.5; BMI 29.2
[2023-09-14 20:41] LABS: BASO % 1.5 % (0-2.0); EOS % 4.6 % (0-4.5); HEMATOCRIT 37.7 % (32.4-45.2); HEMOGLOBIN 12.5 GM/dL (10.7-15.3); LYMPH % 29.7 % (8-40); MCH 28.4 pg (25.7-33.7); MEAN CELL VOLUME 86.1 fl (80-96); MEAN PLT VOLUME 8.9 fl (7.5-11.1); MONO % 9.1 % (3.8-10.2); NEUT % 55.1 % (42.8-82.8); PLATELET COUNT 169 10^3/uL (134-434); RBC 4.38 M/mm3 (3.60-5.2); RDW 16.2 % (11.6-15.6); WHITE BLOOD COUNT 5.8 K/mm3 (4.0-10.0)
[2023-09-14 20:48] LABS: POTASSIUM 4.2 mmol/L (3.5-5.1)
[2023-09-14 20:50] LABS: CALCIUM 8.9 mg/dL (8.5-10.1)
[2023-09-14 20:51] LABS: ALBUMIN 3.8 g/dl (3.4-5.0); BLOOD UREA NITROGEN 15.8 mg/dL (7-18); MAGNESIUM 1.8 mg/dL (1.8-2.4)
[2023-09-14 20:54] LABS: CREATININE 0.8 mg/dL (0.55-1.3); PHOSPHOROUS 3.7 mg/dL (2.5-4.9)
[2023-09-14 20:56] LABS: BILIRUBIN,TOTAL 0.6 mg/dL (0.2-1); TOT PROT 7.4 g/dl (6.4-8.2)
== END 2023-09-14 21:48 | disposition home or self-care (01) ==
LOC: JER 18:45
DX: N63.13 Unspecified lump in the right breast, lower outer quadrant (principal)
CPT/HCPCS: 36415; 76604; 80053; 83735; 84100; 85025; 93005; 93010; 99285-25

== ENCOUNTER → 2023-10-31 | Day surgery (SDC) | payer OTHER, BC | END | disposition home or self-care (01) | LOC: JRADUS-SUR 11:52 | PROVIDERS: ATTEND Registered Nurse | PROC: 0H9T3ZX Drainage of Right Breast, Percutaneous Approach, Diagnostic (ICD-10-PCS; principal; 2023-10-31) | DX: N63.10 Unspecified lump in the right breast, unspecified quadrant (principal) | CPT/HCPCS: 19083; 77065-TC; 87899; 88305-TC; 88342-TC; A4648 ==

== ENCOUNTER 2023-11-18 11:37 | Observation (INO) | payer OTHER, BC ==
[2023-11-18 11:47] VITALS: BMI 29.2
[2023-11-18 12:38] LABS: BASO % 0.5 % (0-2.0); EOS % 1.4 % (0-4.5); HEMATOCRIT 36.4 % (32.4-45.2); HEMOGLOBIN 12.1 GM/dL (10.7-15.3); LYMPH % 28.9 % (8-40); MCH 28.2 pg (25.7-33.7); MCHC 33.1 g/dl (32.0-36.0); MEAN CELL VOLUME 85.1 fl (80-96); MEAN PLT VOLUME 7.8 fl (7.5-11.1); MONO % 9.7 % (3.8-10.2); NEUT % 59.5 % (42.8-82.8); PLATELET COUNT 249 10^3/uL (134-434); RBC 4.28 M/mm3 (3.60-5.2); RDW 15.6 % (11.6-15.6); WHITE BLOOD COUNT 8.3 K/mm3 (4.0-10.0)
[2023-11-18 12:56] LABS: POTASSIUM 4.6 mmol/L (3.5-5.1)
[2023-11-18] MEDS ORDERED: ONDANSETRON 4 MG/2 ML VIAL ONE (12:56)
[2023-11-18 12:58] LABS: ALBUMIN 3.1 g/dl (3.4-5.0); CALCIUM 8.4 mg/dL (8.5-10.1)
[2023-11-18 12:59] LABS: BLOOD UREA NITROGEN 19.4 mg/dL (7-18); MAGNESIUM 1.7 mg/dL (1.8-2.4)
[2023-11-18 13:02] LABS: CREATININE 0.9 mg/dL (0.55-1.3)
[2023-11-18 13:03] LABS: BILIRUBIN,TOTAL 0.7 mg/dL (0.2-1)
[2023-11-18] MEDS: ONDANSETRON 4 MG/2 ML VIAL IVPUSH ONE (13:20)
[2023-11-18] MEDS: SODIUM CHLORIDE 0.9% 500 ML INFUS.BAG IV ONE ×2 (13:20→13:50)
[2023-11-18] MEDS ORDERED: MAGNESIUM SULFATE IN WATER 2 GM/50 ML IVPB IVPB ONE (13:40)
[2023-11-18] MEDS: MAGNESIUM SULFATE IN WATER 2 GM/50 ML IVPB IVPB ONE (13:50)
[2023-11-18 14:35] LABS: PH,URINE 5.5 (5.0-8.0); URINE APPEARANCE CLEAR; URINE BILIRUBIN NEGATIVE (NEGATIVE); URINE COLOR DK YELLOW; URINE GLUCOSE (UA) NEGATIVE (NEGATIVE); URINE KETONE NEGATIVE (NEGATIVE); URINE LEUK ESTERASE NEGATIVE (NEGATIVE); URINE NITRITE NEGATIVE (NEGATIVE); URINE PROTEIN NEGATIVE (NEGATIVE); URINE UROBILINOGEN 0.2 mg/dL (0.2-1.0)
[2023-11-18] MEDS ORDERED: ACETAMINOPHEN 500 MG TABLET (FP) ONE (14:58)
[2023-11-18] MEDS: ACETAMINOPHEN 500 MG TABLET (FP) PO ONE (15:07)
[2023-11-18] MEDS ORDERED: ASPIRIN 81 MG CHEWABLE TABLETS ONE (16:18)
[2023-11-18] MEDS: ASPIRIN 81 MG CHEWABLE TABLETS PO ONE (16:24)
[2023-11-18] MEDS ORDERED: ONDANSETRON *ODT* 4 MG TABLET SL PRN (17:01)
[2023-11-18] MEDS: SODIUM CHLORIDE 1,000 ML IV SCH (18:00)
[2023-11-18] MEDS ORDERED: CARVEDILOL 6.25 MG TABLET (FP) ONE (21:14)
[2023-11-18] MEDS: CARVEDILOL 6.25 MG TABLET (FP) PO SCH (22:16)
[2023-11-18 23:26] VITALS: TEMP 98.2
[2023-11-19 06:33] LABS: BASO % 0.8 % (0-2.0); EOS % 2.3 % (0-4.5); HEMATOCRIT 34.3 % (32.4-45.2); HEMOGLOBIN 11.6 GM/dL (10.7-15.3); LYMPH % 23.6 % (8-40); MCH 28.7 pg (25.7-33.7); MCHC 33.8 g/dl (32.0-36.0); MEAN CELL VOLUME 84.9 fl (80-96); MONO % 10.7 % (3.8-10.2); NEUT % 62.6 % (42.8-82.8); PLATELET COUNT 245 10^3/uL (134-434); RBC 4.04 M/mm3 (3.60-5.2); RDW 15.7 % (11.6-15.6); WHITE BLOOD COUNT 7.4 K/mm3 (4.0-10.0)
[2023-11-19 06:55] LABS: CHLORIDE 108 mmol/L (98-107); POTASSIUM 4.5 mmol/L (3.5-5.1); SODIUM 138 mmol/L (136-145)
[2023-11-19 07:01] LABS: CALCIUM 8.1 mg/dL (8.5-10.1)
[2023-11-19 07:02] LABS: ALBUMIN 2.8 g/dl (3.4-5.0); ANION GAP 4 mmol/L (4-13); BLOOD UREA NITROGEN 11.8 mg/dL (7-18); CO2 26 mmol/L (21-32); GLUCOSE,RANDOM 171 mg/dL (74-106); MAGNESIUM 1.5 mg/dL (1.8-2.4)
[2023-11-19] MEDS: INSULIN ASPART SLIDING SCALE (NOVOLOG) 1 VIAL SQ SCH (07:03)
[2023-11-19] MEDS: metFORMIN HCL 500 MG TABLET (FP) PO SCH (07:03)
[2023-11-19 07:04] LABS: SGPT/ALT 41 U/L (13-61)
[2023-11-19 07:05] LABS: CREATININE 0.7 mg/dL (0.55-1.3); SGOT/AST 36 U/L (15-37)
[2023-11-19 07:06] LABS: BILIRUBIN,TOTAL 0.6 mg/dL (0.2-1); TOT PROT 6.2 g/dl (6.4-8.2)
[2023-11-19 07:07] LABS: ALK PHOS 87 U/L (45-117)
[2023-11-19] MEDS ORDERED: MAGNESIUM SULFATE IN WATER 2 GM/50 ML IVPB IVPB ONE (09:23)
[2023-11-19] MEDS: MAGNESIUM SULFATE IN WATER 2 GM/50 ML IVPB IVPB ONE (09:31)
[2023-11-19] MEDS ORDERED: HEPARIN NA (PORCINE) 5,000 UNITS/ML 1ML VIAL ONE (09:34)
[2023-11-19] MEDS ORDERED: ASPIRIN 81 MG CHEWABLE TABLETS ONE (09:34)
[2023-11-19] MEDS ORDERED: CARVEDILOL 6.25 MG TABLET (FP) ONE (09:34)
[2023-11-19] MEDS: ASPIRIN 81 MG CHEWABLE TABLETS PO SCH (09:44)
[2023-11-19] MEDS: HEPARIN NA (PORCINE) 5,000 UNITS/ML 1ML VIAL SQ SCH (09:44)
[2023-11-19] MEDS ORDERED: INSULIN REGULAR HUMAN 100 UNITS/ML *VIAL ONE (12:21)
[2023-11-19 14:59] VITALS: BP 125/56; PULSE 62; RESP 18
== END 2023-11-19 14:59 | disposition home or self-care (01) ==
LOC: JER 11:37 → JERBED 15:14
PROVIDERS: ADMIT Internal Medicine; ATTEND Nurse Practitioner Acute Care
PROC: 3E023GC Introduction of Other Therapeutic Substance into Muscle, Percutaneous Approach (ICD-10-PCS; principal; 2023-11-18)
PROC: 3E013VG Introduction of Insulin into Subcutaneous Tissue, Percutaneous Approach (ICD-10-PCS; 2023-11-18)
PROC: 3E033GC Introduction of Other Therapeutic Substance into Peripheral Vein, Percutaneous Approach (ICD-10-PCS; 2023-11-18)
PROC: 3E0337Z Introduction of Electrolytic and Water Balance Substance into Peripheral Vein, Percutaneous Approach (ICD-10-PCS; 2023-11-18)
DX: A08.4 Viral intestinal infection, unspecified (principal); I10 Essential (primary) hypertension; R79.89 Other specified abnormal findings of blood chemistry; K57.90 Diverticulosis of intestine, part unspecified, without perforation or abscess without bleeding; E11.9 Type 2 diabetes mellitus without complications; Z95.0 Presence of cardiac pacemaker; R11.0 Nausea; Z88.2 Allergy status to sulfonamides
CPT/HCPCS: 0241U-QW; 36415; 71045-TC-FY; 80053; 81003; 82550; 82962; 83036; 83735; 84484; 85025; 86850; 86900; 86901; 87086; 93005; 93010; 96361; 96365; 96366; 96372; 96375; 99285-25; G0378; J1644

== ENCOUNTER 2023-12-15 10:12 | Inpatient (IN) | payer OTHER, BC ==
[2023-12-15] MEDS: LACTATED RINGERS SOLUTION 1000 ML INFUS.BAG IV STA (11:01)
[2023-12-15] MEDS ORDERED: ACETAMINOPHEN INJECTION 100 ML ONE (11:06)
[2023-12-15] MEDS: ACETAMINOPHEN 1000 MG/100 ML BAG IVPB ONE (11:20)
[2023-12-15 11:31] LABS: BASO % 0.4 % (0-2.0); EOS % 0.1 % (0-4.5); HEMATOCRIT 27.6 % (32.4-45.2); HEMOGLOBIN 9.1 GM/dL (10.7-15.3); LYMPH % 4.7 % (8-40); MCH 27.5 pg (25.7-33.7); MCHC 32.9 g/dl (32.0-36.0); MEAN CELL VOLUME 83.4 fl (80-96); MEAN PLT VOLUME 8.5 fl (7.5-11.1); MONO % 5.9 % (3.8-10.2); NEUT % 88.9 % (42.8-82.8); PLATELET COUNT 207 10^3/uL (134-434); RBC 3.31 M/mm3 (3.60-5.2); WHITE BLOOD COUNT 14.7 K/mm3 (4.0-10.0)
[2023-12-15 11:37] LABS: VENOUS BASE EXCESS -2.8 mmol/L (-2-2); VENOUS O2 SATURATION 63.4 % (70-80); VENOUS PCO2 33.6 mmHg (38-52); VENOUS PH 7.417 (7.310-7.410)
[2023-12-15 11:39] LABS: INR 1.49 (0.83-1.09); PROTHROMBIN TIME (PATIENT) 16.6 SEC (9.7-13.0)
[2023-12-15 11:42] LABS: ACTIVATED PTT 27.7 SECONDS (25.2-36.5)
[2023-12-15 11:52] LABS: POTASSIUM 4.5 mmol/L (3.5-5.1)
[2023-12-15 11:54] LABS: CALCIUM 8.3 mg/dL (8.5-10.1)
[2023-12-15 11:55] LABS: ALBUMIN 2.4 g/dl (3.4-5.0); BLOOD UREA NITROGEN 34.6 mg/dL (7-18)
[2023-12-15] MEDS ORDERED: VANCOMYCIN 1 GRAM (PRE-DOCKED) 1,000 MG/250 ML BAG IVPB ONE (11:57)
[2023-12-15 11:58] LABS: CREATININE 1.3 mg/dL (0.55-1.3)
[2023-12-15] MEDS ORDERED: PIPERACILLIN/TAZOB 3.375 GM 3.375 GM/50 ML BAG IVPB ONE (11:58)
[2023-12-15 11:59] LABS: TOT PROT 6.3 g/dl (6.4-8.2)
[2023-12-15] MEDS: LACTATED RINGERS SOLUTION 1000 ML INFUS.BAG IV ONE ×3 (12:30→14:41)
[2023-12-15] MEDS: PIPERACILLIN/TAZOB 3.375 GM 3.375 GM in DEXTROSE 5%-WATER - 50 ML IVPB ONE (12:31)
[2023-12-15 12:40] LABS: EPI CELLS 22 /uL (0-25.1); HYALINE CASTS 3 /uL (0-3.1); URINE APPEARANCE CLEAR; URINE BACTERIA 23 /uL (0-1359); URINE BILIRUBIN NEGATIVE (NEGATIVE); URINE COLOR YELLOW; URINE GLUCOSE (UA) NEGATIVE (NEGATIVE); URINE KETONE TRACE (NEGATIVE); URINE LEUK ESTERASE NEGATIVE (NEGATIVE); URINE NITRITE NEGATIVE (NEGATIVE); URINE PROTEIN 1+ (NEGATIVE); URINE RBC 29 /uL (0-23.9); URINE WBC 41 /uL (0-25.8)
[2023-12-15] MEDS: VANCOMYCIN 1,000 MG in DEXTROSE 5%-WATER - 250 ML IVPB ONE (13:03)
[2023-12-15] MEDS ORDERED: MIDODRINE HCL 5 MG TABLET ONE (13:33)
[2023-12-15] MEDS: MIDODRINE HCL 5 MG TABLET PO ONE (13:40)
[2023-12-15] MEDS: SODIUM CHLORIDE 500 ML IV STA (13:40)
[2023-12-15] MEDS: NOREPINEPHRINE BITARTRATE 4,000 MCG in DEXTROSE 5%-WATER - 496 ML IV SCH (15:11)
[2023-12-15] MEDS: ENOXAPARIN NA (PORCINE) 80 MG/0.8 ML DISP.SYRIN SQ SCH (17:00)
[2023-12-15] MEDS: PIPERACILLIN/TAZOB 3.375 GM 3.375 GM in DEXTROSE 5%-WATER - 50 ML IVPB SCH ×2 (18:06)
[2023-12-15] MEDS: CEFTRIAXONE 1 GM in DEXTROSE 5%-WATER - 50 ML IVPB SCH (21:37)
[2023-12-15] MEDS: DOXYCYCLINE INJECTION 100 MG in DEXTROSE 5%-WATER 100 ML IVPB SCH (21:37)
[2023-12-15] MEDS: MIDODRINE HCL 5 MG TABLET PO SCH (21:38)
[2023-12-15] MEDS: CHLORHEXIDINE GLUCONATE 4% CLEANSER FOR DECOLONIZATION TP SCH (21:38)
[2023-12-15] MEDS: LACTATED RINGERS SOLUTION 1,000 ML/1,000 ML INFUS.BAG IV STA (21:39)
[2023-12-15] MEDS: MUPIROCIN 2% TOPICAL OINTMENT FOR DECOLONIZATION NS SCH (21:39)
[2023-12-16] MEDS ORDERED: PIPERACILLIN/TAZOB 3.375 GM 3.375 GM in DEXTROSE 5%-WATER - 50 ML IVPB SCH (02:00)
[2023-12-16 08:23] LABS: BASO % 0.7 % (0-2.0); EOS % 1.2 % (0-4.5); HEMATOCRIT 29.8 % (32.4-45.2); LYMPH % 12.7 % (8-40); MCH 27.8 pg (25.7-33.7); MCHC 33.5 g/dl (32.0-36.0); MEAN PLT VOLUME 9.1 fl (7.5-11.1); MONO % 6.5 % (3.8-10.2); NEUT % 78.9 % (42.8-82.8); PLATELET COUNT 212 10^3/uL (134-434); RBC 3.59 M/mm3 (3.60-5.2); RDW 16.8 % (11.6-15.6); WHITE BLOOD COUNT 10.5 K/mm3 (4.0-10.0)
[2023-12-16 08:31] LABS: INR 1.55 (0.83-1.09); PROTHROMBIN TIME (PATIENT) 17.3 SEC (9.7-13.0)
[2023-12-16 08:34] LABS: ACTIVATED PTT 35.2 SECONDS (25.2-36.5)
[2023-12-16 08:42] LABS: POTASSIUM 4.1 mmol/L (3.5-5.1)
[2023-12-16 08:47] LABS: CALCIUM 7.9 mg/dL (8.5-10.1)
[2023-12-16 08:48] LABS: ALBUMIN 2.2 g/dl (3.4-5.0); BLOOD UREA NITROGEN 20.1 mg/dL (7-18)
[2023-12-16 08:49] LABS: MAGNESIUM 1.4 mg/dL (1.8-2.4)
[2023-12-16 08:51] LABS: CREATININE 0.7 mg/dL (0.55-1.3)
[2023-12-16 08:53] LABS: BILIRUBIN,TOTAL 0.7 mg/dL (0.2-1)
[2023-12-16] MEDS: PANTOPRAZOLE 40 MG TABLET PO SCH (10:08)
[2023-12-16] MEDS: VANCOMYCIN/WATER FOR INJ (PEG) 750 MG/150 ML BAG IVPB SCH (11:00)
[2023-12-16] MEDS: INSULIN ASPART SLIDING SCALE (NOVOLOG) 1 VIAL SQ SCH (21:51)
[2023-12-17 08:23] LABS: HEMATOCRIT 29.1 % (32.4-45.2); HEMOGLOBIN 9.8 GM/dL (10.7-15.3); MCH 27.8 pg (25.7-33.7); MCHC 33.6 g/dl (32.0-36.0); MEAN CELL VOLUME 82.7 fl (80-96); MEAN PLT VOLUME 8.6 fl (7.5-11.1); PLATELET COUNT 244 10^3/uL (134-434); RBC 3.52 M/mm3 (3.60-5.2); RDW 16.3 % (11.6-15.6); WHITE BLOOD COUNT 8.6 K/mm3 (4.0-10.0)
[2023-12-17 08:38] LABS: INR 1.31 (0.83-1.09); PROTHROMBIN TIME (PATIENT) 14.7 SEC (9.7-13.0)
[2023-12-17 08:39] LABS: ACTIVATED PTT 28.2 SECONDS (25.2-36.5)
[2023-12-17 08:47] LABS: BLOOD UREA NITROGEN 14.3 mg/dL (7-18); CALCIUM 7.6 mg/dL (8.5-10.1); MAGNESIUM 1.2 mg/dL (1.8-2.4)
[2023-12-17 08:50] LABS: CREATININE 0.7 mg/dL (0.55-1.3)
[2023-12-17 08:51] LABS: PHOSPHOROUS 2.7 mg/dL (2.5-4.9)
[2023-12-17] MEDS: ENOXAPARIN NA (PORCINE) 80 MG/0.8 ML DISP.SYRIN SQ SCH (09:07)
[2023-12-17] MEDS: MAGNESIUM 2GM/50ML STERILE WATER IVPB IVPB ONE (09:37)
[2023-12-17] MEDS ORDERED: INSULIN ASPART SLIDING SCALE (NOVOLOG) 1 VIAL SQ ONE ×2 (11:20→16:22)
[2023-12-17] MEDS: MIDODRINE HCL 5 MG TABLET PO SCH (14:29)
[2023-12-17] MEDS: ATORVASTATIN CA 40 MG TABLET (FP) PO SCH (21:36)
[2023-12-17] MEDS: APIXABAN 5 MG TABLET PO SCH (21:37)
[2023-12-17] MEDS: INSULIN ASPART SLIDING SCALE (NOVOLOG) 1 VIAL SQ SCH (22:39)
[2023-12-18] MEDS: MUPIROCIN 2% TOPICAL OINTMENT FOR DECOLONIZATION NS SCH (08:10)
[2023-12-18] MEDS: CHLORHEXIDINE GLUCONATE 4% CLEANSER FOR DECOLONIZATION TP SCH (08:11)
[2023-12-18 08:14] LABS: HEMATOCRIT 27.8 % (32.4-45.2); HEMOGLOBIN 9.3 GM/dL (10.7-15.3); MCH 27.5 pg (25.7-33.7); MCHC 33.4 g/dl (32.0-36.0); MEAN CELL VOLUME 82.4 fl (80-96); MEAN PLT VOLUME 8.5 fl (7.5-11.1); PLATELET COUNT 246 10^3/uL (134-434); RBC 3.37 M/mm3 (3.60-5.2); RDW 16.6 % (11.6-15.6); WHITE BLOOD COUNT 8.1 K/mm3 (4.0-10.0)
[2023-12-18 08:32] LABS: POTASSIUM 3.7 mmol/L (3.5-5.1)
[2023-12-18 08:36] LABS: CALCIUM 7.8 mg/dL (8.5-10.1)
[2023-12-18 08:37] LABS: ALBUMIN 2.2 g/dl (3.4-5.0); MAGNESIUM 1.5 mg/dL (1.8-2.4)
[2023-12-18 08:40] LABS: CREATININE 0.6 mg/dL (0.55-1.3); PHOSPHOROUS 2.5 mg/dL (2.5-4.9)
[2023-12-18 08:41] LABS: BILIRUBIN,TOTAL 0.8 mg/dL (0.2-1)
[2023-12-18 08:42] LABS: TOT PROT 5.9 g/dl (6.4-8.2)
[2023-12-18] MEDS ORDERED: ASPIRIN 81 MG CHEWABLE TABLETS PO SCH (10:00)
[2023-12-18] MEDS ORDERED: amLODIPine BESYLATE 5 MG TABLET (FP) PO SCH (10:00)
[2023-12-18] MEDS ORDERED: VALSARTAN 80 MG TABLET PO SCH ×2 (10:00)
[2023-12-18] MEDS ORDERED: VALSARTAN 160 MG TABLET PO SCH (10:00)
[2023-12-18] MEDS ORDERED: CARVEDILOL 6.25 MG TABLET (FP) PO SCH (10:00)
[2023-12-18] MEDS: CEFTRIAXONE 1 GM in DEXTROSE 5%-WATER - 50 ML IVPB SCH (11:21)
[2023-12-18] MEDS: MULTIVITAMINS (DAILY MVI) TABLET (FP) PO SCH (11:21)
[2023-12-18] MEDS: VALSARTAN 80 MG TABLET PO SCH (11:21)
[2023-12-18] MEDS: PANTOPRAZOLE 40 MG TABLET PO SCH (11:21)
[2023-12-18] MEDS: MAGNESIUM SULFATE IN WATER 2 GM/50 ML IVPB IVPB ONE (16:35)
[2023-12-19] MEDS: AMPICILLIN - 2 GM in SODIUM CHLORIDE 100 ML IVPB SCH (16:23)
[2023-12-19] MEDS: SODIUM CHLORIDE IVPB SCH (17:50)
[2023-12-19] MEDS: GENTAMICIN IVPB SCH (17:50)
[2023-12-20 08:17] LABS: HEMATOCRIT 26.4 % (32.4-45.2); HEMOGLOBIN 8.7 GM/dL (10.7-15.3); MCH 28.1 pg (25.7-33.7); MCHC 33.1 g/dl (32.0-36.0); MEAN CELL VOLUME 84.9 fl (80-96); PLATELET COUNT 266 10^3/uL (134-434); RBC 3.11 M/mm3 (3.60-5.2); RDW 16.5 % (11.6-15.6); WHITE BLOOD COUNT 8.2 K/mm3 (4.0-10.0)
[2023-12-20 08:33] LABS: POTASSIUM 3.4 mmol/L (3.5-5.1)
[2023-12-20 08:34] LABS: CALCIUM 7.9 mg/dL (8.5-10.1)
[2023-12-20 08:35] LABS: BLOOD UREA NITROGEN 4.5 mg/dL (7-18); MAGNESIUM 1.3 mg/dL (1.8-2.4)
[2023-12-20 08:38] LABS: CREATININE 0.5 mg/dL (0.55-1.3); PHOSPHOROUS 2.3 mg/dL (2.5-4.9)
[2023-12-20 15:26] VITALS: BMI 28.3
[2023-12-21] MEDS: CARVEDILOL 6.25 MG TABLET (FP) PO SCH (10:08)
[2023-12-21] MEDS: POTASSIUM CHLORIDE ORAL LIQUID 20 MEQ/15 ML PO ONE (16:38)
[2023-12-21] MEDS: MAGNESIUM SULFATE IN WATER 2 GM/50 ML IVPB IVPB ONE (16:38)
[2023-12-22 08:34] LABS: POTASSIUM 3.7 mmol/L (3.5-5.1)
[2023-12-22 08:39] LABS: BLOOD UREA NITROGEN 6.2 mg/dL (7-18)
[2023-12-22 08:43] LABS: CREATININE 0.5 mg/dL (0.55-1.3)
[2023-12-22] MEDS: MAGNESIUM 1GM/D5W 100ML - 100 ML IVPB IVPB ONE (14:09)
[2023-12-23 08:35] LABS: BASO % 0.7 % (0-2.0); EOS % 2.2 % (0-4.5); HEMATOCRIT 28.5 % (32.4-45.2); HEMOGLOBIN 9.6 GM/dL (10.7-15.3); MCH 28.2 pg (25.7-33.7); MCHC 33.6 g/dl (32.0-36.0); MEAN PLT VOLUME 7.3 fl (7.5-11.1); NEUT % 74.1 % (42.8-82.8); PLATELET COUNT 302 10^3/uL (134-434); RBC 3.39 M/mm3 (3.60-5.2); RDW 17.1 % (11.6-15.6); WHITE BLOOD COUNT 7.6 K/mm3 (4.0-10.0)
[2023-12-23 09:03] LABS: POTASSIUM 3.6 mmol/L (3.5-5.1)
[2023-12-23 09:07] LABS: ALBUMIN 2.5 g/dl (3.4-5.0); BLOOD UREA NITROGEN 6.6 mg/dL (7-18); CALCIUM 8.3 mg/dL (8.5-10.1)
[2023-12-23 09:11] LABS: BILIRUBIN,TOTAL 0.6 mg/dL (0.2-1); CREATININE 0.7 mg/dL (0.55-1.3); TOT PROT 6.6 g/dl (6.4-8.2)
[2023-12-24 08:35] LABS: BASO % 0.7 % (0-2.0); EOS % 2.2 % (0-4.5); HEMATOCRIT 27.1 % (32.4-45.2); HEMOGLOBIN 8.8 GM/dL (10.7-15.3); LYMPH % 22.5 % (8-40); MCH 28.1 pg (25.7-33.7); MCHC 32.7 g/dl (32.0-36.0); MEAN CELL VOLUME 86.2 fl (80-96); MEAN PLT VOLUME 7.9 fl (7.5-11.1); MONO % 7.2 % (3.8-10.2); NEUT % 67.4 % (42.8-82.8); PLATELET COUNT 287 10^3/uL (134-434); RBC 3.14 M/mm3 (3.60-5.2); RDW 18.1 % (11.6-15.6); WHITE BLOOD COUNT 6.9 K/mm3 (4.0-10.0)
[2023-12-24 08:52] LABS: POTASSIUM 3.5 mmol/L (3.5-5.1)
[2023-12-24 08:57] LABS: CALCIUM 8.3 mg/dL (8.5-10.1)
[2023-12-24 08:58] LABS: ALBUMIN 2.3 g/dl (3.4-5.0); BLOOD UREA NITROGEN 6.4 mg/dL (7-18)
[2023-12-24 09:01] LABS: CREATININE 0.7 mg/dL (0.55-1.3)
[2023-12-24 09:02] LABS: BILIRUBIN,TOTAL 0.6 mg/dL (0.2-1); TOT PROT 6.3 g/dl (6.4-8.2)
[2023-12-24] MEDS: APIXABAN 5 MG TABLET PO SCH (22:36)
[2023-12-25 10:31] LABS: BASO % 0.6 % (0-2.0); EOS % 1.4 % (0-4.5); HEMATOCRIT 28.2 % (32.4-45.2); HEMOGLOBIN 9.4 GM/dL (10.7-15.3); LYMPH % 10.8 % (8-40); MCH 28.4 pg (25.7-33.7); MCHC 33.2 g/dl (32.0-36.0); MEAN CELL VOLUME 85.5 fl (80-96); MEAN PLT VOLUME 7.8 fl (7.5-11.1); MONO % 6.1 % (3.8-10.2); NEUT % 81.1 % (42.8-82.8); PLATELET COUNT 333 10^3/uL (134-434); RDW 17.6 % (11.6-15.6); WHITE BLOOD COUNT 9.4 K/mm3 (4.0-10.0)
[2023-12-25 10:51] LABS: POTASSIUM 3.4 mmol/L (3.5-5.1)
[2023-12-25 11:09] LABS: ALBUMIN 2.6 g/dl (3.4-5.0); BLOOD UREA NITROGEN 6.4 mg/dL (7-18); CALCIUM 8.5 mg/dL (8.5-10.1)
[2023-12-25 11:10] LABS: BILIRUBIN,TOTAL 0.8 mg/dL (0.2-1); CREATININE 0.7 mg/dL (0.55-1.3); TOT PROT 6.8 g/dl (6.4-8.2)
[2023-12-25] MEDS: POTASSIUM CHLORIDE ORAL LIQUID 20 MEQ/15 ML PO ONE (15:45)
[2023-12-26 08:35] LABS: BASO % 0.9 % (0-2.0); EOS % 1.3 % (0-4.5); HEMATOCRIT 25.9 % (32.4-45.2); HEMOGLOBIN 8.6 GM/dL (10.7-15.3); LYMPH % 12.2 % (8-40); MCH 28.2 pg (25.7-33.7); MEAN CELL VOLUME 85.6 fl (80-96); MEAN PLT VOLUME 8.1 fl (7.5-11.1); MONO % 6.5 % (3.8-10.2); NEUT % 79.1 % (42.8-82.8); PLATELET COUNT 294 10^3/uL (134-434); RBC 3.03 M/mm3 (3.60-5.2); RDW 18.5 % (11.6-15.6); WHITE BLOOD COUNT 9.2 K/mm3 (4.0-10.0)
[2023-12-26 08:54] LABS: POTASSIUM 3.9 mmol/L (3.5-5.1)
[2023-12-26 08:58] LABS: ALBUMIN 2.3 g/dl (3.4-5.0); BLOOD UREA NITROGEN 7.4 mg/dL (7-18); CALCIUM 8.2 mg/dL (8.5-10.1)
[2023-12-26 09:02] LABS: CREATININE 0.7 mg/dL (0.55-1.3)
[2023-12-26 09:03] LABS: BILIRUBIN,TOTAL 0.5 mg/dL (0.2-1); TOT PROT 6.2 g/dl (6.4-8.2)
[2023-12-27 07:26] LABS: POTASSIUM 3.4 mmol/L (3.5-5.1)
[2023-12-27 07:27] LABS: CALCIUM 8.3 mg/dL (8.5-10.1)
[2023-12-27 07:28] LABS: BLOOD UREA NITROGEN 6.7 mg/dL (7-18)
[2023-12-27 07:30] LABS: HEMATOCRIT 27.5 % (32.4-45.2); HEMOGLOBIN 8.9 GM/dL (10.7-15.3); MCH 28.2 pg (25.7-33.7); MCHC 32.5 g/dl (32.0-36.0); MEAN CELL VOLUME 86.7 fl (80-96); MEAN PLT VOLUME 8.6 fl (7.5-11.1); PLATELET COUNT 331 10^3/uL (134-434); RBC 3.17 M/mm3 (3.60-5.2); RDW 19.8 % (11.6-15.6)
[2023-12-27 07:31] LABS: CREATININE 0.6 mg/dL (0.55-1.3)
[2023-12-27] MEDS: POTASSIUM CHLORIDE ORAL LIQUID 20 MEQ/15 ML PO ONE (09:38)
[2023-12-28 09:50] LABS: BASO % 1.4 % (0-2.0); EOS % 2.6 % (0-4.5); HEMATOCRIT 27.5 % (32.4-45.2); HEMOGLOBIN 8.7 GM/dL (10.7-15.3); LYMPH % 26.3 % (8-40); MCH 27.7 pg (25.7-33.7); MCHC 31.7 g/dl (32.0-36.0); MEAN CELL VOLUME 87.3 fl (80-96); MEAN PLT VOLUME 8.1 fl (7.5-11.1); MONO % 8.5 % (3.8-10.2); NEUT % 61.2 % (42.8-82.8); PLATELET COUNT 296 10^3/uL (134-434); RBC 3.15 M/mm3 (3.60-5.2); RDW 20.2 % (11.6-15.6); WHITE BLOOD COUNT 5.2 K/mm3 (4.0-10.0)
[2023-12-28 10:12] LABS: POTASSIUM 3.9 mmol/L (3.5-5.1)
[2023-12-28 10:18] LABS: CALCIUM 8.6 mg/dL (8.5-10.1)
[2023-12-28 10:19] LABS: ALBUMIN 2.4 g/dl (3.4-5.0); BLOOD UREA NITROGEN 8.1 mg/dL (7-18)
[2023-12-28 10:22] LABS: CREATININE 0.7 mg/dL (0.55-1.3)
[2023-12-28 10:24] LABS: TOT PROT 6.4 g/dl (6.4-8.2)
[2023-12-28 10:59] LABS: BILIRUBIN,TOTAL 0.5 mg/dL (0.2-1)
[2023-12-28] MEDS ORDERED: INSULIN ASPART SLIDING SCALE (NOVOLOG) 1 VIAL SQ ONE (17:42)
[2023-12-31 11:17] LABS: CHOLESTEROL 92 mg/dL (50-200); LDL CHOLESTEROL (ONLY SJRH) 47 mg/dL (5-100)
[2023-12-31 11:19] LABS: HDL CHOLESTEROL 42 mg/dL (40-60)
[2024-01-01 10:23] LABS: BASO % 1.9 % (0-2.0); HEMATOCRIT 31.5 % (32.4-45.2); HEMOGLOBIN 10.2 GM/dL (10.7-15.3); MCH 28.1 pg (25.7-33.7); MCHC 32.4 g/dl (32.0-36.0); MEAN CELL VOLUME 86.9 fl (80-96); MEAN PLT VOLUME 8.3 fl (7.5-11.1); NEUT % 56.1 % (42.8-82.8); PLATELET COUNT 271 10^3/uL (134-434); RBC 3.63 M/mm3 (3.60-5.2); RDW 20.1 % (11.6-15.6); WHITE BLOOD COUNT 5.3 K/mm3 (4.0-10.0)
[2024-01-01 10:56] LABS: POTASSIUM 3.3 mmol/L (3.5-5.1)
[2024-01-01 10:58] LABS: ALBUMIN 2.6 g/dl (3.4-5.0); BLOOD UREA NITROGEN 8.3 mg/dL (7-18); CALCIUM 8.5 mg/dL (8.5-10.1)
[2024-01-01 11:01] LABS: CREATININE 0.8 mg/dL (0.55-1.3)
[2024-01-01 11:03] LABS: BILIRUBIN,TOTAL 0.5 mg/dL (0.2-1)
[2024-01-01] MEDS: POTASSIUM CHLORIDE ORAL LIQUID 20 MEQ/15 ML PO ONE (13:16)
[2024-01-01 14:33] LABS: MAGNESIUM 1.6 mg/dL (1.8-2.4)
[2024-01-01 14:37] LABS: PHOSPHOROUS 2.9 mg/dL (2.5-4.9)
[2024-01-01] MEDS: MAGNESIUM 2GM/50ML STERILE WATER IVPB IVPB ONE (18:19)
[2024-01-02 08:55] LABS: POTASSIUM 3.7 mmol/L (3.5-5.1)
[2024-01-02 08:57] LABS: CALCIUM 8.4 mg/dL (8.5-10.1)
[2024-01-02 08:58] LABS: ALBUMIN 2.6 g/dl (3.4-5.0); BLOOD UREA NITROGEN 8.3 mg/dL (7-18); MAGNESIUM 1.9 mg/dL (1.8-2.4)
[2024-01-02 09:01] LABS: CREATININE 0.8 mg/dL (0.55-1.3); PHOSPHOROUS 2.8 mg/dL (2.5-4.9)
[2024-01-02 09:02] LABS: BILIRUBIN,TOTAL 0.4 mg/dL (0.2-1); TOT PROT 6.8 g/dl (6.4-8.2)
[2024-01-02 13:41] VITALS: BP 135/57; PULSE 55; RESP 17; TEMP 98.6
== END 2024-01-02 18:06 | disposition home or self-care (01) | DRG 871 ==
LOC: JER 10:12 → JERBED 14:51 → JICU 15:41 → J7W 12-17 19:07
PROVIDERS: ADMIT Internal Medicine Pulmonary Disease
DX: A32.7 Listerial sepsis (principal); I26.93 Single subsegmental thrombotic pulmonary embolism without acute cor pulmonale; R65.21 Severe sepsis with septic shock; I26.99 Other pulmonary embolism without acute cor pulmonale; E11.9 Type 2 diabetes mellitus without complications; I10 Essential (primary) hypertension; E78.5 Hyperlipidemia, unspecified; Z95.0 Presence of cardiac pacemaker; E83.42 Hypomagnesemia; E87.6 Hypokalemia; I25.10 Atherosclerotic heart disease of native coronary artery without angina pectoris
CPT/HCPCS: 0241U-QW; 36415; 71045-TC-FY; 71275-TC; 74177-TC; 80048; 80053; 80061; 80170; 81003; 82308; 82533; 82803; 82962; 83605; 83690; 83735; 84100; 84443; 84479; 84484; 85025; 85027; 85610; 85730; 86850; 86900; 86901; 87040; 87086; 87186; 87899; 93005; 93010; 93306-TC; 93970-TC; 97116-GP; 97162-GP; 99291; G0480; J0131; Q9967

== ENCOUNTER 2024-02-06 03:08 | Emergency (ER) | payer OTHER, BC ==
[2024-02-06 03:36] VITALS: PULSE 71; BMI 26.2
[2024-02-06 04:29] LABS: BASO % 0.6 % (0-2.0); HEMOGLOBIN 11.3 GM/dL (10.7-15.3); LYMPH % 21.1 % (8-40); MCH 28.7 pg (25.7-33.7); MCHC 33.3 g/dl (32.0-36.0); MEAN CELL VOLUME 86.2 fl (80-96); MEAN PLT VOLUME 8.6 fl (7.5-11.1); MONO % 8.9 % (3.8-10.2); NEUT % 68.4 % (42.8-82.8); PLATELET COUNT 151 10^3/uL (134-434); RBC 3.95 M/mm3 (3.60-5.2); RDW 17.7 % (11.6-15.6); WHITE BLOOD COUNT 5.2 K/mm3 (4.0-10.0)
[2024-02-06 04:51] LABS: POTASSIUM 3.8 mmol/L (3.5-5.1)
[2024-02-06 04:52] LABS: CALCIUM 9.3 mg/dL (8.5-10.1)
[2024-02-06 04:53] LABS: BLOOD UREA NITROGEN 17.1 mg/dL (7-18)
[2024-02-06 04:56] LABS: CREATININE 1.1 mg/dL (0.55-1.3)
[2024-02-06 07:22] VITALS: BP 140/74; RESP 16; TEMP 97.9
== END 2024-02-06 08:17 | disposition home or self-care (01) ==
LOC: JER 03:08
DX: E11.65 Type 2 diabetes mellitus with hyperglycemia (principal); Z79.84 Long term (current) use of oral hypoglycemic drugs
CPT/HCPCS: 36415; 80048; 82962; 85025; 93005; 93010; 99284-25

== ENCOUNTER 2024-03-19 11:42 | Emergency (ER) | payer OTHER, BC ==
[2024-03-19 11:48] VITALS: TEMP 99.7; BMI 26.2
[2024-03-19 12:47] VITALS: RESP 17
[2024-03-19] MEDS ORDERED: DIPHTH,PERTUSS(ACELL),TET 0.5 ML DISP.SYRIN IM ONE (16:06)
[2024-03-19] MEDS: DIPHTH,PERTUSS(ACELL),TET 0.5 ML DISP.SYRIN IM ONE (16:06)
[2024-03-19 16:46] VITALS: BP 159/74; PULSE 66
== END 2024-03-19 16:45 | disposition home or self-care (01) ==
LOC: JER 11:42
PROC: 08Q0XZZ Repair Right Eye, External Approach (ICD-10-PCS; principal; 2024-03-19)
PROC: 3E0234Z Introduction of Serum, Toxoid and Vaccine into Muscle, Percutaneous Approach (ICD-10-PCS; 2024-03-19)
DX: S01.111A Laceration without foreign body of right eyelid and periocular area, initial encounter (principal); W01.0XXA Fall on same level from slipping, tripping and stumbling without subsequent striking against object, initial encounter; Z23 Encounter for immunization
CPT/HCPCS: 12011-25; 70450-TC; 72125-TC; 90471; 90715; 93005; 93010; 99284-25

== ENCOUNTER 2024-04-02 16:47 | Inpatient (IN) | payer OTHER, BC ==
[2024-04-02] MEDS: SODIUM CHLORIDE 0.9% 500 ML INFUS.BAG IV ONE (18:39)
[2024-04-02 18:46] LABS: BASO % 0.5 % (0-2.0); EOS % 0.1 % (0-4.5); HEMATOCRIT 35.3 % (32.4-45.2); HEMOGLOBIN 11.3 GM/dL (10.7-15.3); LYMPH % 17.3 % (8-40); MCH 27.4 pg (25.7-33.7); MCHC 32.1 g/dl (32.0-36.0); MEAN CELL VOLUME 85.5 fl (80-96); MEAN PLT VOLUME 9.7 fl (7.5-11.1); NEUT % 73.1 % (42.8-82.8); PLATELET COUNT 337 10^3/uL (134-434); RBC 4.13 M/mm3 (3.60-5.2); RDW 17.6 % (11.6-15.6)
[2024-04-02 18:47] LABS: INR 1.8 (0.83-1.09)
[2024-04-02 18:49] LABS: ACTIVATED PTT 32.8 SECONDS (25.2-36.5)
[2024-04-02 18:59] LABS: CHLORIDE 95 mmol/L (98-107); SODIUM 131 mmol/L (136-145)
[2024-04-02 19:01] LABS: ALBUMIN 2.5 g/dl (3.4-5.0); ANION GAP 5 mmol/L (4-13); CALCIUM 9.3 mg/dL (8.5-10.1); CO2 30 mmol/L (21-32); MAGNESIUM 2.2 mg/dL (1.8-2.4); POTASSIUM 7.4 mmol/L (3.5-5.1)
[2024-04-02 19:04] LABS: CREATININE 1.5 mg/dL (0.55-1.3); SGOT/AST 94 U/L (15-37)
[2024-04-02 19:06] LABS: BILIRUBIN,TOTAL 0.5 mg/dL (0.2-1); TOT PROT 8.3 g/dl (6.4-8.2)
[2024-04-02 19:07] LABS: ALK PHOS 136 U/L (45-117)
[2024-04-02 19:09] LABS: GLUCOSE,RANDOM 776 mg/dL (74-106); SGPT/ALT 21 U/L (13-61)
[2024-04-02 20:14] LABS: CHLORIDE 102 mmol/L (98-107); SODIUM 134 mmol/L (136-145)
[2024-04-02 20:16] LABS: CALCIUM 8.5 mg/dL (8.5-10.1)
[2024-04-02 20:17] LABS: ALBUMIN 2.2 g/dl (3.4-5.0); BLOOD UREA NITROGEN 21.2 mg/dL (7-18); CO2 27 mmol/L (21-32)
[2024-04-02 20:20] LABS: CREATININE 1.3 mg/dL (0.55-1.3); SGOT/AST 56 U/L (15-37); SGPT/ALT 14 U/L (13-61)
[2024-04-02 20:21] LABS: BILIRUBIN,TOTAL 0.6 mg/dL (0.2-1)
[2024-04-02 20:22] LABS: ALK PHOS 115 U/L (45-117)
[2024-04-02 20:35] LABS: ANION GAP 4 mmol/L (4-13); GLUCOSE,RANDOM 689 mg/dL (74-106); POTASSIUM 7.1 mmol/L (3.5-5.1)
[2024-04-02] MEDS ORDERED: INSULIN REGULAR HUMAN 100 UNITS/ML *VIAL SQ ONE (20:39)
[2024-04-02 20:58] LABS: VENOUS BASE EXCESS 1.5 mmol/L (-2-2); VENOUS O2 SATURATION 28.8 % (70-80); VENOUS PCO2 49.2 mmHg (38-52); VENOUS PH 7.364 (7.310-7.410)
[2024-04-02] MEDS ORDERED: INSULIN REGULAR HUMAN 100 UNITS/ML *VIAL ONE ×2 (21:00→21:05)
[2024-04-02] MEDS: INSULIN REGULAR HUMAN 100 UNITS/ML *VIAL IVPUSH ONE (21:15)
[2024-04-02] MEDS: LACTATED RINGERS SOLUTION 1000 ML INFUS.BAG IV ONE (21:15)
[2024-04-02 21:21] LABS: CHLORIDE 102 mmol/L (98-107); POTASSIUM 4.5 mmol/L (3.5-5.1); SODIUM 138 mmol/L (136-145)
[2024-04-02 21:23] LABS: CALCIUM 9.4 mg/dL (8.5-10.1)
[2024-04-02 21:24] LABS: ALBUMIN 2.6 g/dl (3.4-5.0); ANION GAP 4 mmol/L (4-13); BLOOD UREA NITROGEN 20.6 mg/dL (7-18); CO2 31 mmol/L (21-32)
[2024-04-02 21:27] LABS: CREATININE 1.3 mg/dL (0.55-1.3); SGOT/AST 23 U/L (15-37); SGPT/ALT 14 U/L (13-61)
[2024-04-02 21:28] LABS: BILIRUBIN,TOTAL 0.6 mg/dL (0.2-1)
[2024-04-02 21:29] LABS: TOT PROT 7.6 g/dl (6.4-8.2)
[2024-04-02 21:30] LABS: ALK PHOS 134 U/L (45-117)
[2024-04-02 21:47] LABS: GLUCOSE,RANDOM 617 mg/dL (74-106)
[2024-04-02] MEDS ORDERED: ACETAMINOPHEN 325 MG TABLET (FP) PO PRN (22:30)
[2024-04-02] MEDS ORDERED: INSULIN REGULAR HUMAN 100 UNITS/ML *VIAL IVPUSH PRN (22:39)
[2024-04-02] MEDS: SODIUM CHLORIDE 1,000 ML with POTASSIUM CHLORIDE 20 MEQ IV SCH (23:30)
[2024-04-03] MEDS: CARVEDILOL 6.25 MG TABLET (FP) PO ONE (00:47)
[2024-04-03 01:24] LABS: URINE APPEARANCE CLEAR; URINE BILIRUBIN NEGATIVE (NEGATIVE); URINE COLOR DK YELLOW; URINE GLUCOSE (UA) 3+ (NEGATIVE); URINE KETONE NEGATIVE (NEGATIVE); URINE LEUK ESTERASE NEGATIVE (NEGATIVE); URINE NITRITE NEGATIVE (NEGATIVE); URINE PROTEIN NEGATIVE (NEGATIVE); URINE UROBILINOGEN 0.2 mg/dL (0.2-1.0)
[2024-04-03] MEDS: INSULIN REGULAR HUMAN 100 UNITS/ML *VIAL IVPUSH PRN (02:01)
[2024-04-03] MEDS: INSULIN REGULAR HUMAN 100 UNITS/ML *VIAL IVPUSH ONE (06:10)
[2024-04-03] MEDS: INSULIN ASPART SLIDING SCALE (NOVOLOG) 1 VIAL SQ SCH (06:17)
[2024-04-03] MEDS ORDERED: INSULIN (LEVEMIR) 100 UNITS/ML UNITS SQ SCH (08:00)
[2024-04-03 08:16] LABS: BASO % 0.6 % (0-2.0); EOS % 0.6 % (0-4.5); HEMATOCRIT 34.8 % (32.4-45.2); HEMOGLOBIN 10.8 GM/dL (10.7-15.3); LYMPH % 13.4 % (8-40); MCH 26.7 pg (25.7-33.7); MCHC 31.1 g/dl (32.0-36.0); MEAN PLT VOLUME 8.7 fl (7.5-11.1); MONO % 7.9 % (3.8-10.2); NEUT % 77.5 % (42.8-82.8); PLATELET COUNT 187 10^3/uL (134-434); RBC 4.04 M/mm3 (3.60-5.2); RDW 16.8 % (11.6-15.6); WHITE BLOOD COUNT 6.8 K/mm3 (4.0-10.0)
[2024-04-03] MEDS: INSULIN (LEVEMIR) 100 UNITS/ML UNITS SQ SCH ×2 (08:33→08:50)
[2024-04-03] MEDS: VALSARTAN 80 MG TABLET PO SCH (09:14)
[2024-04-03] MEDS: APIXABAN 5 MG TABLET PO SCH (09:14)
[2024-04-03] MEDS: CARVEDILOL 6.25 MG TABLET (FP) PO SCH (09:14)
[2024-04-03] MEDS: PANTOPRAZOLE 40 MG TABLET PO SCH (09:14)
[2024-04-03] MEDS: MUPIROCIN 2% TOPICAL OINTMENT FOR DECOLONIZATION NS SCH (09:15)
[2024-04-03 09:40] LABS: BLOOD UREA NITROGEN 16.3 mg/dL (7-18); CALCIUM 9.3 mg/dL (8.5-10.1); MAGNESIUM 1.8 mg/dL (1.8-2.4)
[2024-04-03 09:43] LABS: CREATININE 0.9 mg/dL (0.55-1.3)
[2024-04-03 09:44] LABS: PHOSPHOROUS 2.3 mg/dL (2.5-4.9)
[2024-04-03 11:32] VITALS: BMI 25.5
[2024-04-03] MEDS: NAPH,MB-DB/K PH,MBDB POWDER PACKET PO SCH (14:43)
[2024-04-03] MEDS: MAGNESIUM 2GM/50ML STERILE WATER IVPB IVPB ONE (16:15)
[2024-04-03] MEDS: ATORVASTATIN CA 40 MG TABLET (FP) PO SCH (21:47)
[2024-04-03] MEDS: CHLORHEXIDINE GLUCONATE 4% CLEANSER FOR DECOLONIZATION TP SCH (21:48)
[2024-04-04] MEDS ORDERED: ACETAMINOPHEN 325 MG TABLET (FP) PO PRN (01:08)
[2024-04-04] MEDS: INSULIN (LEVEMIR) 100 UNITS/ML UNITS SQ SCH (07:00)
[2024-04-04] MEDS: CARVEDILOL 6.25 MG TABLET (FP) PO SCH (10:05)
[2024-04-04] MEDS: APIXABAN 5 MG TABLET PO SCH (10:05)
[2024-04-04] MEDS: VALSARTAN 80 MG TABLET PO SCH (10:05)
[2024-04-04] MEDS: MUPIROCIN 2% TOPICAL OINTMENT FOR DECOLONIZATION NS SCH (11:44)
[2024-04-04] MEDS: INSULIN ASPART SLIDING SCALE (NOVOLOG) 1 VIAL SQ SCH (16:35)
[2024-04-04] MEDS: ATORVASTATIN CA 40 MG TABLET (FP) PO SCH (21:45)
[2024-04-05] MEDS: INSULIN (LEVEMIR) 100 UNITS/ML UNITS SQ SCH (09:07)
[2024-04-05 09:30] LABS: BASO % 0.5 % (0-2.0); EOS % 0.2 % (0-4.5); HEMATOCRIT 26.9 % (32.4-45.2); HEMOGLOBIN 8.6 GM/dL (10.7-15.3); LYMPH % 16.7 % (8-40); MCH 26.9 pg (25.7-33.7); MCHC 32.1 g/dl (32.0-36.0); MEAN CELL VOLUME 83.8 fl (80-96); MEAN PLT VOLUME 8.4 fl (7.5-11.1); MONO % 7.2 % (3.8-10.2); NEUT % 75.4 % (42.8-82.8); PLATELET COUNT 142 10^3/uL (134-434); RBC 3.21 M/mm3 (3.60-5.2); RDW 16.6 % (11.6-15.6); WHITE BLOOD COUNT 6.3 K/mm3 (4.0-10.0)
[2024-04-05 09:36] LABS: POTASSIUM 3.6 mmol/L (3.5-5.1)
[2024-04-05 09:43] LABS: BLOOD UREA NITROGEN 17.2 mg/dL (7-18); MAGNESIUM 1.4 mg/dL (1.8-2.4)
[2024-04-05 09:44] LABS: PHOSPHOROUS 2.2 mg/dL (2.5-4.9)
[2024-04-05 09:45] LABS: BILIRUBIN,TOTAL 0.8 mg/dL (0.2-1)
[2024-04-05 09:46] LABS: TOT PROT 5.9 g/dl (6.4-8.2)
[2024-04-05] MEDS ORDERED: INSULIN (LEVEMIR) 100 UNITS/ML UNITS SQ SCH (10:00)
[2024-04-05 10:07] LABS: CALCIUM 7.9 mg/dL (8.5-10.1)
[2024-04-05] MEDS: INSULIN (NOVOLOG) ASPART 100 UNITS/ML 10ML VIAL SQ SCH (11:47)
[2024-04-05] MEDS ORDERED: MAGNESIUM OXIDE 400 MG TABLET (FP) PO ONE (12:20)
[2024-04-05] MEDS: NAPH,MB-DB/K PH,MBDB POWDER PACKET PO ONE (13:37)
[2024-04-05] MEDS: MAGNESIUM OXIDE 400 MG TABLET (FP) PO ONE (13:37)
[2024-04-05 22:16] VITALS: RESP 18
[2024-04-06 10:44] LABS: BASO % 0.4 % (0-2.0); HEMATOCRIT 30.9 % (32.4-45.2); MCH 26.8 pg (25.7-33.7); MCHC 32.3 g/dl (32.0-36.0); MEAN CELL VOLUME 82.9 fl (80-96); MEAN PLT VOLUME 8.9 fl (7.5-11.1); NEUT % 78.6 % (42.8-82.8); PLATELET COUNT 150 10^3/uL (134-434); RBC 3.73 M/mm3 (3.60-5.2); RDW 17.3 % (11.6-15.6); WHITE BLOOD COUNT 6.6 K/mm3 (4.0-10.0)
[2024-04-06 11:07] LABS: POTASSIUM 3.8 mmol/L (3.5-5.1)
[2024-04-06 11:17] LABS: CALCIUM 8.2 mg/dL (8.5-10.1)
[2024-04-06 11:18] LABS: ALBUMIN 2.2 g/dl (3.4-5.0); BLOOD UREA NITROGEN 18.8 mg/dL (7-18); MAGNESIUM 1.7 mg/dL (1.8-2.4)
[2024-04-06 11:21] LABS: CREATININE 0.9 mg/dL (0.55-1.3); PHOSPHOROUS 2.4 mg/dL (2.5-4.9)
[2024-04-06 11:22] LABS: BILIRUBIN,TOTAL 0.9 mg/dL (0.2-1)
[2024-04-06 11:23] LABS: TOT PROT 6.8 g/dl (6.4-8.2)
[2024-04-06] MEDS: NAPH,MB-DB/K PH,MBDB POWDER PACKET PO ONE (18:26)
[2024-04-06] MEDS: MAGNESIUM 1GM/D5W 100ML - 100 ML IVPB IVPB ONE (18:26)
[2024-04-07] MEDS ORDERED: DEXTROSE 50%-WATER 25 GM/50 ML DISP.SYRIN IVPUSH PRN (06:25)
[2024-04-07 10:36] LABS: HEMATOCRIT 35.2 % (32.4-45.2); HEMOGLOBIN 11.3 GM/dL (10.7-15.3); MCH 26.7 pg (25.7-33.7); MCHC 32.2 g/dl (32.0-36.0); MEAN PLT VOLUME 9.2 fl (7.5-11.1); PLATELET COUNT 174 10^3/uL (134-434); RBC 4.24 M/mm3 (3.60-5.2); RDW 17.5 % (11.6-15.6); WHITE BLOOD COUNT 5.6 K/mm3 (4.0-10.0)
[2024-04-07 10:58] LABS: POTASSIUM 4.4 mmol/L (3.5-5.1)
[2024-04-07 11:01] LABS: BLOOD UREA NITROGEN 25.5 mg/dL (7-18); CALCIUM 8.4 mg/dL (8.5-10.1); MAGNESIUM 2.1 mg/dL (1.8-2.4)
[2024-04-07 11:05] LABS: CREATININE 0.9 mg/dL (0.55-1.3); PHOSPHOROUS 4.1 mg/dL (2.5-4.9)
[2024-04-07 15:14] VITALS: BP 94/45; PULSE 56; TEMP 97.3
== END 2024-04-07 18:00 | disposition home or self-care (01) | DRG 637 ==
LOC: JER 16:47 → JERBED 21:32 → JICU 23:52 → J6S 04-03 23:00
PROVIDERS: ADMIT Internal Medicine Pulmonary Disease; ATTEND Student in an Organized Health Care Education/Training Program
DX: E11.00 Type 2 diabetes mellitus with hyperosmolarity without nonketotic hyperglycemic-hyperosmolar coma (NKHHC) (principal); I26.99 Other pulmonary embolism without acute cor pulmonale; E11.65 Type 2 diabetes mellitus with hyperglycemia; I10 Essential (primary) hypertension; E78.5 Hyperlipidemia, unspecified; E83.39 Other disorders of phosphorus metabolism; E83.42 Hypomagnesemia
CPT/HCPCS: 0241U-QW; 36415; 70450-TC; 71045-TC-FY; 72125-TC; 72170-TC-FY; 80048; 80053; 81003; 82010; 82803; 82962; 83036; 83735; 83930; 84100; 84436; 84443; 84484; 85025; 85027; 85610; 85730; 87086; 87481; 93005; 93010; 97116-GP; 97161-GP; 99291

== ENCOUNTER 2024-05-12 12:43 | Inpatient (IN) | payer BC, OTHER ==
[2024-05-12] MEDS ORDERED: ASPIRIN 81 MG CHEWABLE TABLETS ONE (13:51)
[2024-05-12] MEDS: ASPIRIN 81 MG CHEWABLE TABLETS PO ONE (13:57)
[2024-05-12 14:33] LABS: BASO % 0.4 % (0-2.0); HEMATOCRIT 29.2 % (32.4-45.2); HEMOGLOBIN 8.8 GM/dL (10.7-15.3); MCHC 30.2 g/dl (32.0-36.0); MEAN CELL VOLUME 82.9 fl (80-96); MEAN PLT VOLUME 8.1 fl (7.5-11.1); MONO % 5.4 % (3.8-10.2); NEUT % 83.2 % (42.8-82.8); PLATELET COUNT 392 10^3/uL (134-434); RBC 3.52 M/mm3 (3.60-5.2); RDW 18.3 % (11.6-15.6); WHITE BLOOD COUNT 11.6 K/mm3 (4.0-10.0)
[2024-05-12 14:39] LABS: INR 2.18 (0.83-1.09)
[2024-05-12 14:42] LABS: ACTIVATED PTT 30.3 SECONDS (25.2-36.5)
[2024-05-12 14:54] LABS: POTASSIUM 5.6 mmol/L (3.5-5.1)
[2024-05-12 15:02] LABS: CALCIUM 8.2 mg/dL (8.5-10.1)
[2024-05-12 15:03] LABS: ALBUMIN 2.1 g/dl (3.4-5.0); BLOOD UREA NITROGEN 38.1 mg/dL (7-18)
[2024-05-12 15:06] LABS: CREATININE 1.4 mg/dL (0.55-1.3)
[2024-05-12 15:07] LABS: BILIRUBIN,TOTAL 0.8 mg/dL (0.2-1)
[2024-05-12 15:08] LABS: TOT PROT 8.1 g/dl (6.4-8.2)
[2024-05-12 15:11] LABS: N-TERMINAL BNP 5734.3 pg/ml (5-450)
[2024-05-12] MEDS ORDERED: cefTRIAXone SODIUM 1 GM VIAL ONE (15:51)
[2024-05-12] MEDS: CEFTRIAXONE 1,000 MG in DEXTROSE 5%-WATER - 50 ML IVPB ONE (15:56)
[2024-05-12] MEDS: AZITHROMYCIN IVPB 500 MG in DEXTROSE 5%-WATER - 250 ML IVPB ONE (17:56)
[2024-05-12] MEDS ORDERED: ENOXAPARIN NA (PORCINE) 60 MG/0.6 ML DISP.SYRIN SQ ONE (18:37)
[2024-05-12] MEDS: INSULIN ASPART SLIDING SCALE (NOVOLOG) 1 VIAL SQ SCH (18:42)
[2024-05-12] MEDS: ENOXAPARIN NA (PORCINE) 60 MG/0.6 ML DISP.SYRIN SQ SCH (18:42)
[2024-05-12 19:01] LABS: CHLORIDE 98 mmol/L (98-107); POTASSIUM 4.7 mmol/L (3.5-5.1); SODIUM 127 mmol/L (136-145)
[2024-05-12 19:02] LABS: CALCIUM 7.8 mg/dL (8.5-10.1)
[2024-05-12 19:03] LABS: ANION GAP 9 mmol/L (4-13); BLOOD UREA NITROGEN 37.8 mg/dL (7-18); CO2 20 mmol/L (21-32)
[2024-05-12 19:06] LABS: CREATININE 1.3 mg/dL (0.55-1.3)
[2024-05-12 19:07] LABS: GLUCOSE,RANDOM 414 mg/dL (74-106)
[2024-05-12] MEDS ORDERED: ATORVASTATIN CA 40 MG TABLET (FP) ONE (21:49)
[2024-05-12] MEDS ORDERED: CARVEDILOL 6.25 MG TABLET (FP) ONE (21:49)
[2024-05-12] MEDS ORDERED: INSULIN (LEVEMIR) 100 UNITS/ML UNITS SQ ONE (21:50)
[2024-05-12] MEDS: CARVEDILOL 6.25 MG TABLET (FP) PO SCH (22:02)
[2024-05-12] MEDS: ATORVASTATIN CA 40 MG TABLET (FP) PO SCH (22:02)
[2024-05-13] MEDS: ACETAMINOPHEN 1000 MG/100 ML BAG IVPB ONE (03:31)
[2024-05-13] MEDS: SODIUM CHLORIDE 1,000 ML IV STA ×2 (03:32→06:50)
[2024-05-13] MEDS: INSULIN (LEVEMIR) 100 UNITS/ML UNITS SQ SCH ×2 (05:41→21:14)
[2024-05-13] MEDS: DIGOXIN 0.5 MG/2 ML AMPUL IVPUSH ONE (06:49)
[2024-05-13] MEDS: LIDOCAINE 5% TOPICAL PATCH TP ONE (07:30)
[2024-05-13] MEDS ORDERED: INSULIN (LEVEMIR) 100 UNITS/ML UNITS SQ SCH (07:43)
[2024-05-13 08:42] LABS: BASO % 0.2 % (0-2.0); EOS % 0.1 % (0-4.5); HEMATOCRIT 26.7 % (32.4-45.2); HEMOGLOBIN 8.1 GM/dL (10.7-15.3); LYMPH % 13.8 % (8-40); MCH 25.4 pg (25.7-33.7); MCHC 30.5 g/dl (32.0-36.0); MEAN CELL VOLUME 83.3 fl (80-96); MEAN PLT VOLUME 8.1 fl (7.5-11.1); MONO % 5.2 % (3.8-10.2); NEUT % 80.7 % (42.8-82.8); PLATELET COUNT 329 10^3/uL (134-434); RBC 3.21 M/mm3 (3.60-5.2); WHITE BLOOD COUNT 10.7 K/mm3 (4.0-10.0)
[2024-05-13 08:57] LABS: CALCIUM 7.6 mg/dL (8.5-10.1)
[2024-05-13 08:58] LABS: BLOOD UREA NITROGEN 42.2 mg/dL (7-18); POTASSIUM 5.1 mmol/L (3.5-5.1)
[2024-05-13 09:01] LABS: CREATININE 1.7 mg/dL (0.55-1.3)
[2024-05-13] MEDS ORDERED: AZITHROMYCIN 500 MG TABLET PO SCH (10:00)
[2024-05-13] MEDS ORDERED: HEPARIN NA (PORCINE) 5,000 UNITS/ML 1ML VIAL IVPUSH PRN ×4 (10:05→12:13)
[2024-05-13] MEDS: METOPROLOL TARTRATE 5 MG/5 ML VIAL IVPUSH ONE (10:20)
[2024-05-13] MEDS: CEFTRIAXONE 1 G/50 ML PREMIX 50 ML IVPB SCH (10:24)
[2024-05-13] MEDS ORDERED: INSULIN (NOVOLOG) ASPART 100 UNITS/ML 10ML VIAL SQ SCH (11:00)
[2024-05-13] MEDS: HEPARIN - 25,000 UNIT in SODIUM CHLORIDE 495 ML IV SCH (11:12)
[2024-05-13] MEDS ORDERED: DIGOXIN 0.5 MG/2 ML AMPUL IVPUSH ONE ×2 (12:00→18:00)
[2024-05-13] MEDS ORDERED: HEPARIN - 25,000 UNIT in SODIUM CHLORIDE 495 ML IV SCH (12:15)
[2024-05-13 12:30] LABS: URINE APPEARANCE TURBID; URINE BILIRUBIN NEGATIVE (NEGATIVE); URINE COLOR YELLOW; URINE GLUCOSE (UA) 2+ (NEGATIVE); URINE KETONE NEGATIVE (NEGATIVE); URINE NITRITE NEGATIVE (NEGATIVE); URINE PROTEIN 1+ (NEGATIVE)
[2024-05-13 12:31] LABS: URINE LEUK ESTERASE 2+ (NEGATIVE)
[2024-05-13] MEDS ORDERED: VASopressin 20 UNITS/ML VIAL IV ONE (12:44)
[2024-05-13] MEDS: VASopressin 40 UNITS/100 ML BAG IV SCH (13:35)
[2024-05-13] MEDS ORDERED: PIPERACILLIN/TAZOB 2.25 GM 2.25 GM in DEXTROSE 5%-WATER - 50 ML IVPB SCH (15:00)
[2024-05-13] MEDS: VANCOMYCIN 1 GM PREMIX (F) 1 GM/200 ML BAG IVPB ONE (15:41)
[2024-05-13] MEDS: ENOXAPARIN NA (PORCINE) 60 MG/0.6 ML DISP.SYRIN SQ SCH ×2 (15:42→16:25)
[2024-05-13] MEDS: PIPERACILLIN/TAZOB 2.25 GM 2.25 GM/50 ML BAG IVPB SCH (15:43)
[2024-05-13] MEDS: NOREPINEPHRINE 0.9 % NACL 8 MG/250 ML BAG IVPB SCH (16:08)
[2024-05-13 16:49] LABS: ARTERIAL BLD GAS O2 SATURATION 98.1 % (95-98); ARTERIAL BLOOD GAS BASE EXCESS -6.8 mmol/L (-2-2); ARTERIAL BLOOD GAS PO2 110.5 mmHg (80-100); ARTERIAL BLOOD GAS pH 7.401 (7.350-7.450)
[2024-05-13 16:51] LABS: ALLENS TEST POSITIVE
[2024-05-13] MEDS ORDERED: ACETAMINOPHEN 1000 MG/100 ML BAG IVPB PRN (17:45)
[2024-05-13 17:56] LABS: BASO % 0.3 % (0-2.0); EOS % 0.3 % (0-4.5); HEMATOCRIT 24.9 % (32.4-45.2); HEMOGLOBIN 7.8 GM/dL (10.7-15.3); LYMPH % 10.1 % (8-40); MCH 25.3 pg (25.7-33.7); MCHC 31.2 g/dl (32.0-36.0); MEAN CELL VOLUME 80.9 fl (80-96); MEAN PLT VOLUME 7.5 fl (7.5-11.1); MONO % 6.2 % (3.8-10.2); NEUT % 83.1 % (42.8-82.8); PLATELET COUNT 381 10^3/uL (134-434); RBC 3.08 M/mm3 (3.60-5.2); RDW 17.8 % (11.6-15.6); WHITE BLOOD COUNT 10.1 K/mm3 (4.0-10.0)
[2024-05-13 18:16] LABS: POTASSIUM 5.2 mmol/L (3.5-5.1)
[2024-05-13 18:18] LABS: CALCIUM 7.3 mg/dL (8.5-10.1)
[2024-05-13 18:19] LABS: BLOOD UREA NITROGEN 49.3 mg/dL (7-18); MAGNESIUM 1.3 mg/dL (1.8-2.4)
[2024-05-13 18:22] LABS: ALBUMIN 1.6 g/dl (3.4-5.0); CREATININE 2.1 mg/dL (0.55-1.3); PHOSPHOROUS 3.7 mg/dL (2.5-4.9)
[2024-05-13 18:23] LABS: BILIRUBIN,TOTAL 0.4 mg/dL (0.2-1); TOT PROT 6.4 g/dl (6.4-8.2)
[2024-05-13 18:28] LABS: IRON SERUM 12 ug/dL (50-175)
[2024-05-13 18:29] LABS: TOTAL IRON BINDING CAPACITY 144 ug/dL (250-450)
[2024-05-13] MEDS: SODIUM CHLORIDE 1,000 ML IV SCH (20:34)
[2024-05-13] MEDS: MUPIROCIN 2% TOPICAL OINTMENT FOR DECOLONIZATION NS SCH (21:09)
[2024-05-13] MEDS: CHLORHEXIDINE GLUCONATE 4% CLEANSER FOR DECOLONIZATION TP SCH (21:10)
[2024-05-13] MEDS: LIDOCAINE PATCH REMOVAL MC SCH (21:10)
[2024-05-13] MEDS: ATORVASTATIN CA 40 MG TABLET (FP) PO SCH (21:13)
[2024-05-13] MEDS ORDERED: LIDOCAINE PATCH REMOVAL MC SCH (22:00)
[2024-05-14] MEDS: INSULIN ASPART SLIDING SCALE (NOVOLOG) 1 VIAL SQ SCH (06:06)
[2024-05-14] MEDS ORDERED: INSULIN ASPART SLIDING SCALE (NOVOLOG) 1 VIAL SQ SCH (07:00)
[2024-05-14 07:41] LABS: INR 1.71 (0.83-1.09); PROTHROMBIN TIME (PATIENT) 18.6 SEC (9.7-13.0)
[2024-05-14 07:43] LABS: ACTIVATED PTT 29.8 SECONDS (25.2-36.5); HEMATOCRIT 21.8 % (32.4-45.2); MCH 25.4 pg (25.7-33.7); MCHC 31.2 g/dl (32.0-36.0); MEAN CELL VOLUME 81.6 fl (80-96); MEAN PLT VOLUME 7.8 fl (7.5-11.1); PLATELET COUNT 401 10^3/uL (134-434); RBC 2.68 M/mm3 (3.60-5.2); RDW 17.7 % (11.6-15.6); WHITE BLOOD COUNT 12.4 K/mm3 (4.0-10.0)
[2024-05-14 07:48] LABS: HEMOGLOBIN 6.8 GM/dL (10.7-15.3)
[2024-05-14 08:08] LABS: ALBUMIN 1.6 g/dl (3.4-5.0); BLOOD UREA NITROGEN 50.3 mg/dL (7-18)
[2024-05-14] MEDS ORDERED: HEPARIN NA (PORCINE) 5,000 UNITS/ML 1ML VIAL IVPUSH PRN ×3 (08:08→18:21)
[2024-05-14 08:09] LABS: CALCIUM 7.3 mg/dL (8.5-10.1)
[2024-05-14 08:10] LABS: MAGNESIUM 1.4 mg/dL (1.8-2.4)
[2024-05-14 08:11] LABS: PHOSPHOROUS 4.3 mg/dL (2.5-4.9)
[2024-05-14 08:13] LABS: BILIRUBIN,TOTAL 0.4 mg/dL (0.2-1); TOT PROT 6.4 g/dl (6.4-8.2)
[2024-05-14] MEDS ORDERED: HEPARIN - 25,000 UNIT in SODIUM CHLORIDE 495 ML IV SCH (09:00)
[2024-05-14] MEDS ORDERED: ENOXAPARIN NA (PORCINE) 60 MG/0.6 ML DISP.SYRIN SQ SCH (10:00)
[2024-05-14] MEDS: MAGNESIUM 2GM/50ML STERILE WATER IVPB IVPB ONE (15:23)
[2024-05-14 18:25] LABS: BASO % 0.2 % (0-2.0); EOS % 0.1 % (0-4.5); HEMATOCRIT 40.5 % (32.4-45.2); HEMOGLOBIN 12.9 GM/dL (10.7-15.3); LYMPH % 9.5 % (8-40); MCH 26.9 pg (25.7-33.7); MCHC 31.8 g/dl (32.0-36.0); MEAN CELL VOLUME 84.6 fl (80-96); MEAN PLT VOLUME 7.4 fl (7.5-11.1); MONO % 6.3 % (3.8-10.2); NEUT % 83.9 % (42.8-82.8); PLATELET COUNT 419 10^3/uL (134-434); RBC 4.78 M/mm3 (3.60-5.2); RDW 17.2 % (11.6-15.6); WHITE BLOOD COUNT 15.3 K/mm3 (4.0-10.0)
[2024-05-14] MEDS: HEPARIN INFUSION - 25,000 UNITS/500 ML INFUS.BAG IVPB SCH (18:33)
[2024-05-14] MEDS: HEPARIN NA (PORCINE) 5,000 UNITS/ML 1ML VIAL IVPUSH ONE (18:34)
[2024-05-15] MEDS: HEPARIN NA (PORCINE) 5,000 UNITS/ML 1ML VIAL IVPUSH PRN (00:40)
[2024-05-15 06:54] LABS: BASO % 0.6 % (0-2.0); EOS % 0.3 % (0-4.5); HEMATOCRIT 32.8 % (32.4-45.2); HEMOGLOBIN 10.8 GM/dL (10.7-15.3); LYMPH % 11.6 % (8-40); MCH 27.5 pg (25.7-33.7); MEAN CELL VOLUME 83.5 fl (80-96); MEAN PLT VOLUME 7.3 fl (7.5-11.1); MONO % 6.6 % (3.8-10.2); NEUT % 80.9 % (42.8-82.8); PLATELET COUNT 413 10^3/uL (134-434); RBC 3.93 M/mm3 (3.60-5.2); RDW 16.9 % (11.6-15.6); WHITE BLOOD COUNT 10.7 K/mm3 (4.0-10.0)
[2024-05-15 07:10] LABS: CHLORIDE 106 mmol/L (98-107); POTASSIUM 4.2 mmol/L (3.5-5.1); SODIUM 133 mmol/L (136-145)
[2024-05-15 07:16] LABS: ALBUMIN 1.5 g/dl (3.4-5.0); ANION GAP 8 mmol/L (4-13); BLOOD UREA NITROGEN 37.9 mg/dL (7-18); CALCIUM 7.1 mg/dL (8.5-10.1); CO2 20 mmol/L (21-32); GLUCOSE,RANDOM 168 mg/dL (74-106)
[2024-05-15 07:17] LABS: MAGNESIUM 1.8 mg/dL (1.8-2.4)
[2024-05-15 07:19] LABS: CREATININE 1.5 mg/dL (0.55-1.3); PHOSPHOROUS 2.9 mg/dL (2.5-4.9); SGPT/ALT 15 U/L (13-61)
[2024-05-15 07:21] LABS: ALK PHOS 80 U/L (45-117); BILIRUBIN,TOTAL 0.6 mg/dL (0.2-1); TOT PROT 6.3 g/dl (6.4-8.2)
[2024-05-15 07:25] LABS: N-TERMINAL BNP 3427.7 pg/ml (5-450)
[2024-05-15 07:28] LABS: SGOT/AST 31 U/L (15-37)
[2024-05-15] MEDS: ENOXAPARIN NA (PORCINE) 60 MG/0.6 ML DISP.SYRIN SQ SCH (08:54)
[2024-05-15] MEDS: CEFTRIAXONE 1 G/50 ML PREMIX 50 ML IVPB SCH (17:09)
[2024-05-15] MEDS: ACETAMINOPHEN 325 MG TABLET (FP) PO PRN (19:16)
[2024-05-15] MEDS: FUROSEMIDE 100 MG/10 ML INJECTABLE VIAL IVPB ONE (23:06)
[2024-05-16] MEDS: ACETAMINOPHEN 325 MG TABLET (FP) PO PRN (08:26)
[2024-05-16 10:59] LABS: BASO % 0.3 % (0-2.0); EOS % 0.2 % (0-4.5); HEMATOCRIT 34.8 % (32.4-45.2); HEMOGLOBIN 11.6 GM/dL (10.7-15.3); LYMPH % 8.6 % (8-40); MCH 27.5 pg (25.7-33.7); MCHC 33.2 g/dl (32.0-36.0); MEAN CELL VOLUME 82.6 fl (80-96); MEAN PLT VOLUME 7.2 fl (7.5-11.1); MONO % 6.9 % (3.8-10.2); PLATELET COUNT 444 10^3/uL (134-434); RBC 4.21 M/mm3 (3.60-5.2); WHITE BLOOD COUNT 10.5 K/mm3 (4.0-10.0)
[2024-05-16 11:08] LABS: POTASSIUM 4.1 mmol/L (3.5-5.1)
[2024-05-16 11:11] LABS: ALBUMIN 1.6 g/dl (3.4-5.0)
[2024-05-16 11:15] LABS: BLOOD UREA NITROGEN 24.4 mg/dL (7-18)
[2024-05-16 11:16] LABS: BILIRUBIN,TOTAL 0.6 mg/dL (0.2-1)
[2024-05-16] MEDS: AMIODARONE IN DEXTROSE 150 MG/100 ML PREMIX BAG IV ONE (11:28)
[2024-05-16] MEDS ORDERED: AMIODARONE HCL 150 MG/3 ML VIAL IVPUSH ONE (11:30)
[2024-05-16] MEDS ORDERED: METOPROLOL TARTRATE 25 MG TABLET (FP) PO SCH ×2 (12:24→22:00)
[2024-05-16] MEDS: METOPROLOL TARTRATE 25 MG TABLET (FP) PO SCH (13:05)
[2024-05-16] MEDS: ENOXAPARIN NA (PORCINE) 60 MG/0.6 ML DISP.SYRIN SQ SCH (23:00)
[2024-05-17 13:03] LABS: BASO % 1.4 % (0-2.0); EOS % 0.7 % (0-4.5); HEMATOCRIT 34.4 % (32.4-45.2); HEMOGLOBIN 11.1 GM/dL (10.7-15.3); LYMPH % 13.5 % (8-40); MCH 27.1 pg (25.7-33.7); MCHC 32.2 g/dl (32.0-36.0); MEAN CELL VOLUME 84.1 fl (80-96); MEAN PLT VOLUME 7.4 fl (7.5-11.1); MONO % 8.2 % (3.8-10.2); NEUT % 76.2 % (42.8-82.8); PLATELET COUNT 422 10^3/uL (134-434); RBC 4.09 M/mm3 (3.60-5.2); RDW 17.7 % (11.6-15.6); WHITE BLOOD COUNT 8.8 K/mm3 (4.0-10.0)
[2024-05-17] MEDS: ACETAMINOPHEN 325 MG TABLET (FP) PO PRN (17:03)
[2024-05-17] MEDS: INSULIN (LEVEMIR) 100 UNITS/ML UNITS SQ SCH (21:42)
[2024-05-17] MEDS: ENOXAPARIN NA (PORCINE) 60 MG/0.6 ML DISP.SYRIN SQ SCH (21:42)
[2024-05-17] MEDS: METOPROLOL TARTRATE 25 MG TABLET (FP) PO SCH (21:42)
[2024-05-17] MEDS: ATORVASTATIN CA 40 MG TABLET (FP) PO SCH (21:42)
[2024-05-18] MEDS: INSULIN ASPART SLIDING SCALE (NOVOLOG) 1 VIAL SQ SCH (06:00)
[2024-05-18 08:46] LABS: HEMATOCRIT 36.7 % (32.4-45.2); HEMOGLOBIN 11.5 GM/dL (10.7-15.3); MCH 26.6 pg (25.7-33.7); MCHC 31.4 g/dl (32.0-36.0); MEAN CELL VOLUME 84.9 fl (80-96); MEAN PLT VOLUME 7.2 fl (7.5-11.1); PLATELET COUNT 486 10^3/uL (134-434); RBC 4.33 M/mm3 (3.60-5.2); RDW 17.8 % (11.6-15.6); WHITE BLOOD COUNT 9.6 K/mm3 (4.0-10.0)
[2024-05-18 09:21] LABS: CALCIUM 8.2 mg/dL (8.5-10.1)
[2024-05-18 09:22] LABS: ALBUMIN 1.7 g/dl (3.4-5.0); BLOOD UREA NITROGEN 16.3 mg/dL (7-18)
[2024-05-18] MEDS: ACETAMINOPHEN 1000 MG/100 ML BAG IVPB PRN (09:24)
[2024-05-18 09:25] LABS: CREATININE 0.9 mg/dL (0.55-1.3)
[2024-05-18] MEDS: CEFTRIAXONE 1 G/50 ML PREMIX 50 ML IVPB SCH (09:25)
[2024-05-18 09:26] LABS: BILIRUBIN,TOTAL 0.5 mg/dL (0.2-1); TOT PROT 6.9 g/dl (6.4-8.2)
[2024-05-18] MEDS: CARVEDILOL 6.25 MG TABLET (FP) PO SCH (09:34)
[2024-05-18] MEDS: AMPICILLIN NA/SULBACTAM NA 3 GM in SODIUM CHLORIDE 100 ML IVPB SCH (11:28)
[2024-05-18] MEDS: GENTAMICIN INJECTION 100 MG in SODIUM CHLORIDE 100 ML IVPB SCH (14:43)
[2024-05-19 07:47] LABS: POTASSIUM 4.1 mmol/L (3.5-5.1)
[2024-05-19 07:49] LABS: CALCIUM 7.6 mg/dL (8.5-10.1)
[2024-05-19 07:50] LABS: ALBUMIN 1.4 g/dl (3.4-5.0); BLOOD UREA NITROGEN 13.9 mg/dL (7-18)
[2024-05-19 07:53] LABS: CREATININE 0.7 mg/dL (0.55-1.3)
[2024-05-19 07:54] LABS: BILIRUBIN,TOTAL 0.4 mg/dL (0.2-1)
[2024-05-19 07:55] LABS: TOT PROT 5.9 g/dl (6.4-8.2)
[2024-05-19 07:57] LABS: HEMOGLOBIN 9.7 GM/dL (10.7-15.3); MCH 27.6 pg (25.7-33.7); MCHC 33.6 g/dl (32.0-36.0); MEAN CELL VOLUME 82.3 fl (80-96); PLATELET COUNT 374 10^3/uL (134-434); RBC 3.52 M/mm3 (3.60-5.2); RDW 17.4 % (11.6-15.6); WHITE BLOOD COUNT 7.1 K/mm3 (4.0-10.0)
[2024-05-19] MEDS: INSULIN (LEVEMIR) 100 UNITS/ML UNITS SQ SCH (22:07)
[2024-05-20 07:43] LABS: POTASSIUM 4.1 mmol/L (3.5-5.1)
[2024-05-20 07:51] LABS: ALBUMIN 1.7 g/dl (3.4-5.0); CALCIUM 8.1 mg/dL (8.5-10.1)
[2024-05-20 07:52] LABS: BLOOD UREA NITROGEN 12.9 mg/dL (7-18)
[2024-05-20 07:54] LABS: CREATININE 0.9 mg/dL (0.55-1.3)
[2024-05-20 07:56] LABS: BILIRUBIN,TOTAL 0.4 mg/dL (0.2-1); TOT PROT 6.7 g/dl (6.4-8.2)
[2024-05-20 15:07] LABS: IG G QN IMMUNOGLOBULIN 2217 mg/dL (586-1602); IGG SUBCLASS 1 1379 mg/dL (248-810); IGG SUBCLASS 2 239 mg/dL (130-555); IGG SUBCLASS 3 63 mg/dL (15-102)
[2024-05-21 07:13] LABS: BASO % 0.9 % (0-2.0); EOS % 0.7 % (0-4.5); HEMATOCRIT 30.5 % (32.4-45.2); HEMOGLOBIN 9.6 GM/dL (10.7-15.3); LYMPH % 19.3 % (8-40); MCH 26.5 pg (25.7-33.7); MCHC 31.5 g/dl (32.0-36.0); MEAN CELL VOLUME 84.4 fl (80-96); MEAN PLT VOLUME 7.1 fl (7.5-11.1); MONO % 12.1 % (3.8-10.2); PLATELET COUNT 367 10^3/uL (134-434); RBC 3.62 M/mm3 (3.60-5.2); RDW 17.8 % (11.6-15.6); WHITE BLOOD COUNT 5.7 K/mm3 (4.0-10.0)
[2024-05-21 08:18] LABS: POTASSIUM 3.8 mmol/L (3.5-5.1)
[2024-05-21 08:20] LABS: ALBUMIN 1.6 g/dl (3.4-5.0); BLOOD UREA NITROGEN 12.2 mg/dL (7-18); CALCIUM 7.7 mg/dL (8.5-10.1)
[2024-05-21 08:23] LABS: CREATININE 0.7 mg/dL (0.55-1.3)
[2024-05-21 08:25] LABS: BILIRUBIN,TOTAL 0.3 mg/dL (0.2-1); TOT PROT 6.7 g/dl (6.4-8.2)
[2024-05-21 09:11] LABS: ERYTHROCYTE SEDIMENTATION RATE 102 mm/hr (0-30)
[2024-05-21 14:07] LABS: IG A QN SERUM. 636 mg/dL (64-422)
[2024-05-21 15:43] LABS: BASO % 0.7 % (0-2.0); EOS % 0.5 % (0-4.5); HEMATOCRIT 32.7 % (32.4-45.2); HEMOGLOBIN 10.3 GM/dL (10.7-15.3); LYMPH % 18.1 % (8-40); MCH 26.9 pg (25.7-33.7); MCHC 31.4 g/dl (32.0-36.0); MEAN CELL VOLUME 85.4 fl (80-96); MEAN PLT VOLUME 7.1 fl (7.5-11.1); MONO % 10.4 % (3.8-10.2); NEUT % 70.3 % (42.8-82.8); PLATELET COUNT 381 10^3/uL (134-434); RBC 3.82 M/mm3 (3.60-5.2); RDW 17.4 % (11.6-15.6); WHITE BLOOD COUNT 6.7 K/mm3 (4.0-10.0)
[2024-05-21] MEDS: INSULIN (LEVEMIR) 100 UNITS/ML UNITS SQ SCH (21:33)
[2024-05-22] MEDS: INSULIN (LEVEMIR) 100 UNITS/ML UNITS SQ SCH (06:02)
[2024-05-22 08:01] LABS: POTASSIUM 3.9 mmol/L (3.5-5.1)
[2024-05-22 08:29] LABS: ALBUMIN 1.7 g/dl (3.4-5.0); BLOOD UREA NITROGEN 14.2 mg/dL (7-18); CALCIUM 7.9 mg/dL (8.5-10.1); MAGNESIUM 1.5 mg/dL (1.8-2.4)
[2024-05-22 08:32] LABS: CREATININE 0.7 mg/dL (0.55-1.3); PHOSPHOROUS 3.2 mg/dL (2.5-4.9)
[2024-05-22 08:33] LABS: BILIRUBIN,TOTAL 0.4 mg/dL (0.2-1)
[2024-05-22 08:34] LABS: TOT PROT 6.7 g/dl (6.4-8.2)
[2024-05-22] MEDS: MAGNESIUM OXIDE 400 MG TABLET (FP) PO ONE (09:29)
[2024-05-22] MEDS: GENTAMICIN IVPB SCH (12:06)
[2024-05-22] MEDS: SODIUM CHLORIDE IVPB SCH (12:06)
[2024-05-22 15:42] LABS: BASO % 1.8 % (0-2.0); EOS % 0.6 % (0-4.5); HEMATOCRIT 31.6 % (32.4-45.2); HEMOGLOBIN 9.9 GM/dL (10.7-15.3); LYMPH % 19.2 % (8-40); MCH 26.5 pg (25.7-33.7); MCHC 31.2 g/dl (32.0-36.0); MEAN CELL VOLUME 84.9 fl (80-96); MONO % 9.8 % (3.8-10.2); NEUT % 68.6 % (42.8-82.8); PLATELET COUNT 375 10^3/uL (134-434); RBC 3.72 M/mm3 (3.60-5.2); RDW 17.5 % (11.6-15.6); WHITE BLOOD COUNT 6.7 K/mm3 (4.0-10.0)
[2024-05-22 20:23] LABS: BASO % 0.6 % (0-2.0); EOS % 0.5 % (0-4.5); HEMATOCRIT 30.9 % (32.4-45.2); LYMPH % 20.2 % (8-40); MCH 26.9 pg (25.7-33.7); MCHC 32.5 g/dl (32.0-36.0); MEAN CELL VOLUME 82.9 fl (80-96); MEAN PLT VOLUME 7.3 fl (7.5-11.1); MONO % 9.9 % (3.8-10.2); NEUT % 68.8 % (42.8-82.8); PLATELET COUNT 390 10^3/uL (134-434); RBC 3.73 M/mm3 (3.60-5.2); RDW 17.6 % (11.6-15.6); WHITE BLOOD COUNT 6.1 K/mm3 (4.0-10.0)
[2024-05-22 20:45] LABS: CALCIUM 7.9 mg/dL (8.5-10.1)
[2024-05-22 20:46] LABS: ALBUMIN 1.8 g/dl (3.4-5.0); BLOOD UREA NITROGEN 14.4 mg/dL (7-18)
[2024-05-22 20:49] LABS: CREATININE 0.8 mg/dL (0.55-1.3)
[2024-05-22 20:50] LABS: BILIRUBIN,TOTAL 0.3 mg/dL (0.2-1)
[2024-05-23 09:15] LABS: MAGNESIUM 1.6 mg/dL (1.8-2.4)
[2024-05-23 09:18] LABS: PHOSPHOROUS 3.2 mg/dL (2.5-4.9)
[2024-05-23] MEDS: MAGNESIUM OXIDE 400 MG TABLET (FP) PO ONE (14:21)
[2024-05-23 14:34] LABS: BASO % 0.3 % (0-2.0); EOS % 0.8 % (0-4.5); HEMATOCRIT 31.3 % (32.4-45.2); HEMOGLOBIN 9.9 GM/dL (10.7-15.3); LYMPH % 23.8 % (8-40); MCH 26.5 pg (25.7-33.7); MCHC 31.8 g/dl (32.0-36.0); MEAN CELL VOLUME 83.2 fl (80-96); MEAN PLT VOLUME 7.4 fl (7.5-11.1); MONO % 9.4 % (3.8-10.2); NEUT % 65.7 % (42.8-82.8); PLATELET COUNT 388 10^3/uL (134-434); RBC 3.76 M/mm3 (3.60-5.2); RDW 17.9 % (11.6-15.6); WHITE BLOOD COUNT 6.3 K/mm3 (4.0-10.0)
[2024-05-23] MEDS: INSULIN ASPART SLIDING SCALE (NOVOLOG) 1 VIAL SQ SCH (17:20)
[2024-05-23 18:57] LABS: HEMATOCRIT 31.5 % (32.4-45.2); HEMOGLOBIN 10.2 GM/dL (10.7-15.3); MCH 27.2 pg (25.7-33.7); MCHC 32.5 g/dl (32.0-36.0); MEAN CELL VOLUME 83.7 fl (80-96); MEAN PLT VOLUME 7.1 fl (7.5-11.1); PLATELET COUNT 403 10^3/uL (134-434); RBC 3.77 M/mm3 (3.60-5.2); RDW 17.6 % (11.6-15.6); WHITE BLOOD COUNT 6.9 K/mm3 (4.0-10.0)
[2024-05-23] MEDS: AMPICILLIN NA/SULBACTAM NA 3 GM in SODIUM CHLORIDE 100 ML IVPB SCH (18:58)
[2024-05-23 19:11] LABS: POTASSIUM 4.1 mmol/L (3.5-5.1)
[2024-05-23 19:13] LABS: ALBUMIN 1.9 g/dl (3.4-5.0); BLOOD UREA NITROGEN 13.8 mg/dL (7-18); CALCIUM 8.1 mg/dL (8.5-10.1)
[2024-05-23 19:17] LABS: CREATININE 0.8 mg/dL (0.55-1.3)
[2024-05-23 19:18] LABS: BILIRUBIN,TOTAL 0.3 mg/dL (0.2-1); TOT PROT 7.9 g/dl (6.4-8.2)
[2024-05-23] MEDS: INSULIN (LEVEMIR) 100 UNITS/ML UNITS SQ SCH (21:22)
[2024-05-23] MEDS: ENOXAPARIN NA (PORCINE) 60 MG/0.6 ML DISP.SYRIN SQ SCH (21:23)
[2024-05-23] MEDS: CARVEDILOL 6.25 MG TABLET (FP) PO SCH (21:23)
[2024-05-23] MEDS: ATORVASTATIN CA 40 MG TABLET (FP) PO SCH (21:23)
[2024-05-24] MEDS: INSULIN (LEVEMIR) 100 UNITS/ML UNITS SQ SCH (06:09)
[2024-05-24 08:58] LABS: MAGNESIUM 1.7 mg/dL (1.8-2.4)
[2024-05-24 09:02] LABS: PHOSPHOROUS 2.8 mg/dL (2.5-4.9)
[2024-05-24] MEDS: GENTAMICIN IVPB SCH (10:24)
[2024-05-24] MEDS: SODIUM CHLORIDE IVPB SCH (10:24)
[2024-05-24] MEDS: VALSARTAN 80 MG TABLET PO SCH (11:23)
[2024-05-24] MEDS: AMPICILLIN - 2 GM in SODIUM CHLORIDE 100 ML IVPB SCH (17:24)
[2024-05-25 10:16] LABS: EOS % 0.7 % (0-4.5); HEMATOCRIT 30.4 % (32.4-45.2); HEMOGLOBIN 9.8 GM/dL (10.7-15.3); LYMPH % 22.8 % (8-40); MCH 26.7 pg (25.7-33.7); MCHC 32.1 g/dl (32.0-36.0); MEAN CELL VOLUME 83.3 fl (80-96); MEAN PLT VOLUME 7.3 fl (7.5-11.1); MONO % 7.9 % (3.8-10.2); NEUT % 67.6 % (42.8-82.8); PLATELET COUNT 403 10^3/uL (134-434); POTASSIUM 3.7 mmol/L (3.5-5.1); RBC 3.65 M/mm3 (3.60-5.2); RDW 17.3 % (11.6-15.6); WHITE BLOOD COUNT 6.5 K/mm3 (4.0-10.0)
[2024-05-25 10:22] LABS: ALBUMIN 1.9 g/dl (3.4-5.0); BLOOD UREA NITROGEN 13.5 mg/dL (7-18); CALCIUM 8.2 mg/dL (8.5-10.1)
[2024-05-25 10:25] LABS: CREATININE 0.8 mg/dL (0.55-1.3)
[2024-05-25 10:27] LABS: BILIRUBIN,TOTAL 0.5 mg/dL (0.2-1); TOT PROT 7.7 g/dl (6.4-8.2)
[2024-05-26 08:21] LABS: BASO % 1.1 % (0-2.0); EOS % 0.7 % (0-4.5); HEMATOCRIT 29.6 % (32.4-45.2); HEMOGLOBIN 9.4 GM/dL (10.7-15.3); LYMPH % 19.5 % (8-40); MCH 26.7 pg (25.7-33.7); MCHC 31.7 g/dl (32.0-36.0); MEAN CELL VOLUME 84.1 fl (80-96); MEAN PLT VOLUME 7.5 fl (7.5-11.1); MONO % 9.5 % (3.8-10.2); NEUT % 69.2 % (42.8-82.8); PLATELET COUNT 361 10^3/uL (134-434); RBC 3.52 M/mm3 (3.60-5.2); RDW 17.9 % (11.6-15.6); WHITE BLOOD COUNT 6.8 K/mm3 (4.0-10.0)
[2024-05-26 08:22] LABS: POTASSIUM 4.1 mmol/L (3.5-5.1)
[2024-05-26 08:27] LABS: ALBUMIN 1.8 g/dl (3.4-5.0); BLOOD UREA NITROGEN 12.5 mg/dL (7-18); CALCIUM 8.3 mg/dL (8.5-10.1)
[2024-05-26 08:30] LABS: CREATININE 0.8 mg/dL (0.55-1.3)
[2024-05-26 08:32] LABS: BILIRUBIN,TOTAL 0.4 mg/dL (0.2-1); TOT PROT 7.2 g/dl (6.4-8.2)
[2024-05-26 08:44] LABS: INR 1.44 (0.83-1.09); PROTHROMBIN TIME (PATIENT) 15.8 SEC (9.7-13.0)
[2024-05-27 10:13] LABS: BASO % 0.9 % (0-2.0); EOS % 0.6 % (0-4.5); HEMATOCRIT 30.2 % (32.4-45.2); HEMOGLOBIN 9.9 GM/dL (10.7-15.3); LYMPH % 17.1 % (8-40); MCH 26.9 pg (25.7-33.7); MCHC 32.8 g/dl (32.0-36.0); MEAN CELL VOLUME 82.2 fl (80-96); MEAN PLT VOLUME 7.4 fl (7.5-11.1); MONO % 8.3 % (3.8-10.2); NEUT % 73.1 % (42.8-82.8); PLATELET COUNT 380 10^3/uL (134-434); RBC 3.68 M/mm3 (3.60-5.2); WHITE BLOOD COUNT 6.9 K/mm3 (4.0-10.0)
[2024-05-27 11:27] LABS: ALBUMIN 1.7 g/dl (3.4-5.0); CALCIUM 8.2 mg/dL (8.5-10.1); MAGNESIUM 1.7 mg/dL (1.8-2.4)
[2024-05-27 11:31] LABS: CREATININE 0.8 mg/dL (0.55-1.3); PHOSPHOROUS 3.8 mg/dL (2.5-4.9)
[2024-05-27 11:32] LABS: BILIRUBIN,TOTAL 0.4 mg/dL (0.2-1)
[2024-05-27 11:33] LABS: TOT PROT 7.1 g/dl (6.4-8.2)
[2024-05-27] MEDS: FUROSEMIDE 40 MG/4 ML INJECTABLE VIAL IVPUSH SCH (13:51)
[2024-05-27 15:53] LABS: BF WBC & OTHER NUCLEATED CELLS 1028 /mm3; BODY FLUID MACROPHAGES 22 %; BODY FLUID MESOTHELIAL 3 %
[2024-05-27] MEDS: MAGNESIUM 1GM/D5W - 1 GM/100 ML IVPB IVPB ONE (20:51)
[2024-05-28] MEDS: ENOXAPARIN NA (PORCINE) 60 MG/0.6 ML DISP.SYRIN SQ SCH (06:14)
[2024-05-28 09:42] LABS: HEMATOCRIT 32.5 % (32.4-45.2); HEMOGLOBIN 10.4 GM/dL (10.7-15.3); MCH 26.8 pg (25.7-33.7); MCHC 31.9 g/dl (32.0-36.0); MEAN CELL VOLUME 83.8 fl (80-96); MEAN PLT VOLUME 7.5 fl (7.5-11.1); PLATELET COUNT 387 10^3/uL (134-434); RBC 3.88 M/mm3 (3.60-5.2); RDW 17.6 % (11.6-15.6); WHITE BLOOD COUNT 7.1 K/mm3 (4.0-10.0)
[2024-05-28 10:03] LABS: POTASSIUM 3.6 mmol/L (3.5-5.1)
[2024-05-28 10:10] LABS: ALBUMIN 1.7 g/dl (3.4-5.0); BLOOD UREA NITROGEN 14.4 mg/dL (7-18); MAGNESIUM 1.8 mg/dL (1.8-2.4)
[2024-05-28 10:13] LABS: CREATININE 0.9 mg/dL (0.55-1.3); PHOSPHOROUS 3.9 mg/dL (2.5-4.9)
[2024-05-28 10:15] LABS: BILIRUBIN,TOTAL 0.4 mg/dL (0.2-1); TOT PROT 7.1 g/dl (6.4-8.2)
[2024-05-28] MEDS: ACETAMINOPHEN 325 MG TABLET (FP) PO PRN (10:55)
[2024-05-28 11:49] LABS: N-TERMINAL BNP 743.2 pg/ml (5-450)
[2024-05-29 09:05] LABS: HEMATOCRIT 31.5 % (32.4-45.2); HEMOGLOBIN 10.1 GM/dL (10.7-15.3); MCH 26.7 pg (25.7-33.7); MEAN CELL VOLUME 83.6 fl (80-96); MEAN PLT VOLUME 7.3 fl (7.5-11.1); PLATELET COUNT 342 10^3/uL (134-434); RBC 3.77 M/mm3 (3.60-5.2); RDW 17.9 % (11.6-15.6); WHITE BLOOD COUNT 7.3 K/mm3 (4.0-10.0)
[2024-05-29 09:16] LABS: POTASSIUM 3.7 mmol/L (3.5-5.1)
[2024-05-29 09:35] LABS: ALBUMIN 1.7 g/dl (3.4-5.0)
[2024-05-29 09:36] LABS: BLOOD UREA NITROGEN 18.3 mg/dL (7-18); CALCIUM 7.9 mg/dL (8.5-10.1); MAGNESIUM 1.7 mg/dL (1.8-2.4)
[2024-05-29 09:39] LABS: BILIRUBIN,TOTAL 0.4 mg/dL (0.2-1); PHOSPHOROUS 3.2 mg/dL (2.5-4.9); TOT PROT 7.1 g/dl (6.4-8.2)
[2024-05-30 10:02] LABS: HEMATOCRIT 33.1 % (32.4-45.2); HEMOGLOBIN 10.7 GM/dL (10.7-15.3); MCHC 32.3 g/dl (32.0-36.0); MEAN CELL VOLUME 83.7 fl (80-96); MEAN PLT VOLUME 7.5 fl (7.5-11.1); PLATELET COUNT 310 10^3/uL (134-434); RBC 3.95 M/mm3 (3.60-5.2); RDW 18.5 % (11.6-15.6); WHITE BLOOD COUNT 6.9 K/mm3 (4.0-10.0)
[2024-05-30 10:15] LABS: POTASSIUM 3.4 mmol/L (3.5-5.1)
[2024-05-30 10:17] LABS: ALBUMIN 1.8 g/dl (3.4-5.0); CALCIUM 8.2 mg/dL (8.5-10.1)
[2024-05-30 10:18] LABS: BLOOD UREA NITROGEN 18.2 mg/dL (7-18); MAGNESIUM 1.8 mg/dL (1.8-2.4)
[2024-05-30 10:21] LABS: PHOSPHOROUS 3.4 mg/dL (2.5-4.9)
[2024-05-30 10:22] LABS: BILIRUBIN,TOTAL 0.4 mg/dL (0.2-1); TOT PROT 7.4 g/dl (6.4-8.2)
[2024-05-30] MEDS: POTASSIUM CHLORIDE ORAL LIQUID 20 MEQ/15 ML PO ONE (13:51)
[2024-05-31 09:19] LABS: HEMATOCRIT 31.2 % (32.4-45.2); HEMOGLOBIN 10.1 GM/dL (10.7-15.3); MCH 26.7 pg (25.7-33.7); MCHC 32.4 g/dl (32.0-36.0); MEAN CELL VOLUME 82.3 fl (80-96); MEAN PLT VOLUME 7.5 fl (7.5-11.1); PLATELET COUNT 282 10^3/uL (134-434); RBC 3.79 M/mm3 (3.60-5.2); RDW 17.9 % (11.6-15.6); WHITE BLOOD COUNT 6.3 K/mm3 (4.0-10.0)
[2024-05-31 09:30] LABS: POTASSIUM 3.3 mmol/L (3.5-5.1)
[2024-05-31 09:35] LABS: ALBUMIN 1.7 g/dl (3.4-5.0); BLOOD UREA NITROGEN 17.8 mg/dL (7-18); CALCIUM 7.9 mg/dL (8.5-10.1)
[2024-05-31 09:36] LABS: MAGNESIUM 1.8 mg/dL (1.8-2.4)
[2024-05-31 09:38] LABS: PHOSPHOROUS 3.5 mg/dL (2.5-4.9)
[2024-05-31 09:39] LABS: BILIRUBIN,TOTAL 0.4 mg/dL (0.2-1); TOT PROT 7.1 g/dl (6.4-8.2)
[2024-05-31 17:56] LABS: URINE APPEARANCE CLEAR; URINE BILIRUBIN NEGATIVE (NEGATIVE); URINE COLOR YELLOW; URINE GLUCOSE (UA) NEGATIVE (NEGATIVE)
[2024-05-31 17:57] LABS: URINE KETONE NEGATIVE (NEGATIVE); URINE LEUK ESTERASE NEGATIVE (NEGATIVE); URINE NITRITE NEGATIVE (NEGATIVE); URINE PROTEIN TRACE (NEGATIVE); URINE UROBILINOGEN 0.2 mg/dL (0.2-1.0)
[2024-06-01 09:35] LABS: HEMATOCRIT 30.8 % (32.4-45.2); HEMOGLOBIN 9.9 GM/dL (10.7-15.3); MCH 26.7 pg (25.7-33.7); MCHC 32.1 g/dl (32.0-36.0); MEAN CELL VOLUME 83.4 fl (80-96); MEAN PLT VOLUME 7.7 fl (7.5-11.1); PLATELET COUNT 261 10^3/uL (134-434); RBC 3.69 M/mm3 (3.60-5.2); RDW 18.2 % (11.6-15.6); WHITE BLOOD COUNT 5.3 K/mm3 (4.0-10.0)
[2024-06-01] MEDS: VALSARTAN 80 MG TABLET PO SCH (09:36)
[2024-06-01 10:03] LABS: POTASSIUM 3.3 mmol/L (3.5-5.1)
[2024-06-01 10:06] LABS: CALCIUM 7.6 mg/dL (8.5-10.1)
[2024-06-01 10:07] LABS: ALBUMIN 1.6 g/dl (3.4-5.0); BLOOD UREA NITROGEN 16.5 mg/dL (7-18); MAGNESIUM 1.7 mg/dL (1.8-2.4)
[2024-06-01 10:10] LABS: PHOSPHOROUS 3.2 mg/dL (2.5-4.9)
[2024-06-01 10:11] LABS: BILIRUBIN,TOTAL 0.4 mg/dL (0.2-1); TOT PROT 6.9 g/dl (6.4-8.2)
[2024-06-02 10:51] LABS: POTASSIUM 3.7 mmol/L (3.5-5.1)
[2024-06-02 10:54] LABS: CALCIUM 7.6 mg/dL (8.5-10.1)
[2024-06-02 10:55] LABS: ALBUMIN 1.6 g/dl (3.4-5.0)
[2024-06-02 10:58] LABS: CREATININE 0.9 mg/dL (0.55-1.3)
[2024-06-02 10:59] LABS: BILIRUBIN,TOTAL 0.3 mg/dL (0.2-1); TOT PROT 6.9 g/dl (6.4-8.2)
[2024-06-03 09:40] LABS: HEMATOCRIT 28.7 % (32.4-45.2); HEMOGLOBIN 9.2 GM/dL (10.7-15.3); MCH 26.6 pg (25.7-33.7); MEAN PLT VOLUME 7.9 fl (7.5-11.1); PLATELET COUNT 277 10^3/uL (134-434); RBC 3.45 M/mm3 (3.60-5.2); RDW 17.7 % (11.6-15.6); WHITE BLOOD COUNT 5.3 K/mm3 (4.0-10.0)
[2024-06-03 10:28] LABS: POTASSIUM 3.5 mmol/L (3.5-5.1)
[2024-06-03] MEDS: FUROSEMIDE 20 MG TABLET (FP) PO SCH (10:30)
[2024-06-03 10:32] LABS: ALBUMIN 1.7 g/dl (3.4-5.0); BLOOD UREA NITROGEN 12.9 mg/dL (7-18); CALCIUM 7.7 mg/dL (8.5-10.1); MAGNESIUM 1.8 mg/dL (1.8-2.4)
[2024-06-03 10:38] LABS: BILIRUBIN,TOTAL 0.3 mg/dL (0.2-1); PHOSPHOROUS 2.8 mg/dL (2.5-4.9); TOT PROT 7.2 g/dl (6.4-8.2)
[2024-06-04 09:59] LABS: HEMATOCRIT 28.2 % (32.4-45.2); HEMOGLOBIN 9.2 GM/dL (10.7-15.3); MCH 26.5 pg (25.7-33.7); MCHC 32.6 g/dl (32.0-36.0); MEAN CELL VOLUME 81.5 fl (80-96); MEAN PLT VOLUME 7.8 fl (7.5-11.1); PLATELET COUNT 295 10^3/uL (134-434); RBC 3.45 M/mm3 (3.60-5.2); RDW 17.8 % (11.6-15.6); WHITE BLOOD COUNT 4.6 K/mm3 (4.0-10.0)
[2024-06-04 10:34] LABS: POTASSIUM 3.8 mmol/L (3.5-5.1)
[2024-06-04] MEDS: NAPH,MB-DB/K PH,MBDB POWDER PACKET PO ONE (10:37)
[2024-06-04] MEDS: MAGNESIUM OXIDE 400 MG TABLET (FP) PO SCH (10:37)
[2024-06-04 10:49] LABS: ALBUMIN 1.6 g/dl (3.4-5.0); BLOOD UREA NITROGEN 12.7 mg/dL (7-18); CALCIUM 7.9 mg/dL (8.5-10.1)
[2024-06-04 10:50] LABS: MAGNESIUM 1.8 mg/dL (1.8-2.4)
[2024-06-04 10:52] LABS: CREATININE 0.9 mg/dL (0.55-1.3); PHOSPHOROUS 3.1 mg/dL (2.5-4.9)
[2024-06-04 10:53] LABS: BILIRUBIN,TOTAL 0.3 mg/dL (0.2-1); TOT PROT 7.2 g/dl (6.4-8.2)
[2024-06-05 12:00] VITALS: BMI 28.1
[2024-06-05 12:32] LABS: HEMATOCRIT 28.9 % (32.4-45.2); HEMOGLOBIN 9.3 GM/dL (10.7-15.3); MCH 26.6 pg (25.7-33.7); MCHC 32.3 g/dl (32.0-36.0); MEAN CELL VOLUME 82.5 fl (80-96); MEAN PLT VOLUME 7.6 fl (7.5-11.1); PLATELET COUNT 294 10^3/uL (134-434); RDW 17.9 % (11.6-15.6); WHITE BLOOD COUNT 4.3 K/mm3 (4.0-10.0)
[2024-06-05 13:07] LABS: POTASSIUM 3.9 mmol/L (3.5-5.1)
[2024-06-05 13:09] LABS: ALBUMIN 1.8 g/dl (3.4-5.0); BLOOD UREA NITROGEN 11.6 mg/dL (7-18); MAGNESIUM 1.9 mg/dL (1.8-2.4)
[2024-06-05 13:12] LABS: CREATININE 0.9 mg/dL (0.55-1.3); PHOSPHOROUS 3.3 mg/dL (2.5-4.9)
[2024-06-05 13:13] LABS: BILIRUBIN,TOTAL 0.3 mg/dL (0.2-1); TOT PROT 7.4 g/dl (6.4-8.2)
[2024-06-05] MEDS: NAPH,MB-DB/K PH,MBDB POWDER PACKET PO ONE (14:35)
[2024-06-06 09:42] LABS: HEMATOCRIT 30.7 % (32.4-45.2); HEMOGLOBIN 9.9 GM/dL (10.7-15.3); MCH 26.4 pg (25.7-33.7); MCHC 32.1 g/dl (32.0-36.0); MEAN CELL VOLUME 82.4 fl (80-96); MEAN PLT VOLUME 7.5 fl (7.5-11.1); PLATELET COUNT 337 10^3/uL (134-434); RBC 3.73 M/mm3 (3.60-5.2); RDW 17.8 % (11.6-15.6); WHITE BLOOD COUNT 4.9 K/mm3 (4.0-10.0)
[2024-06-06 10:00] LABS: POTASSIUM 3.5 mmol/L (3.5-5.1)
[2024-06-06 10:02] LABS: CALCIUM 8.1 mg/dL (8.5-10.1)
[2024-06-06 10:03] LABS: ALBUMIN 1.8 g/dl (3.4-5.0); BLOOD UREA NITROGEN 13.5 mg/dL (7-18); MAGNESIUM 1.8 mg/dL (1.8-2.4)
[2024-06-06 10:06] LABS: PHOSPHOROUS 3.6 mg/dL (2.5-4.9)
[2024-06-06 10:07] LABS: BILIRUBIN,TOTAL 0.4 mg/dL (0.2-1); TOT PROT 7.5 g/dl (6.4-8.2)
[2024-06-06] MEDS: ENOXAPARIN NA (PORCINE) 60 MG/0.6 ML DISP.SYRIN SQ SCH (23:03)
[2024-06-07 09:29] LABS: HEMATOCRIT 29.4 % (32.4-45.2); HEMOGLOBIN 9.4 GM/dL (10.7-15.3); MCH 26.4 pg (25.7-33.7); MCHC 31.9 g/dl (32.0-36.0); MEAN CELL VOLUME 82.6 fl (80-96); MEAN PLT VOLUME 7.5 fl (7.5-11.1); PLATELET COUNT 356 10^3/uL (134-434); RBC 3.56 M/mm3 (3.60-5.2); WHITE BLOOD COUNT 4.8 K/mm3 (4.0-10.0)
[2024-06-07 09:59] LABS: POTASSIUM 3.4 mmol/L (3.5-5.1)
[2024-06-07 10:16] LABS: ALBUMIN 1.8 g/dl (3.4-5.0); BLOOD UREA NITROGEN 12.5 mg/dL (7-18); MAGNESIUM 1.7 mg/dL (1.8-2.4)
[2024-06-07 10:19] LABS: BILIRUBIN,TOTAL 0.4 mg/dL (0.2-1); PHOSPHOROUS 3.3 mg/dL (2.5-4.9)
[2024-06-07 10:21] LABS: TOT PROT 7.4 g/dl (6.4-8.2)
[2024-06-07 11:04] LABS: CALCIUM 8.5 mg/dL (8.5-10.1)
[2024-06-07] MEDS: MAGNESIUM OXIDE 400 MG TABLET (FP) PO ONE (11:23)
[2024-06-07] MEDS: POTASSIUM CHLORIDE ORAL LIQUID 20 MEQ/15 ML PO ONE (11:23)
[2024-06-08 10:25] LABS: HEMATOCRIT 28.8 % (32.4-45.2); HEMOGLOBIN 9.6 GM/dL (10.7-15.3); MCH 27.1 pg (25.7-33.7); MCHC 33.3 g/dl (32.0-36.0); MEAN CELL VOLUME 81.6 fl (80-96); MEAN PLT VOLUME 7.6 fl (7.5-11.1); PLATELET COUNT 341 10^3/uL (134-434); RBC 3.53 M/mm3 (3.60-5.2); WHITE BLOOD COUNT 5.3 K/mm3 (4.0-10.0)
[2024-06-08 10:33] LABS: POTASSIUM 3.9 mmol/L (3.5-5.1)
[2024-06-08 10:40] LABS: BLOOD UREA NITROGEN 12.4 mg/dL (7-18); CALCIUM 8.2 mg/dL (8.5-10.1); MAGNESIUM 1.8 mg/dL (1.8-2.4)
[2024-06-08 10:44] LABS: CREATININE 1.1 mg/dL (0.55-1.3)
[2024-06-09 09:29] LABS: HEMATOCRIT 28.6 % (32.4-45.2); HEMOGLOBIN 9.3 GM/dL (10.7-15.3); MCH 26.9 pg (25.7-33.7); MCHC 32.6 g/dl (32.0-36.0); MEAN CELL VOLUME 82.5 fl (80-96); MEAN PLT VOLUME 7.7 fl (7.5-11.1); PLATELET COUNT 362 10^3/uL (134-434); RBC 3.46 M/mm3 (3.60-5.2); RDW 18.5 % (11.6-15.6); WHITE BLOOD COUNT 5.5 K/mm3 (4.0-10.0)
[2024-06-09 09:51] LABS: POTASSIUM 3.8 mmol/L (3.5-5.1)
[2024-06-09 10:09] LABS: CREATININE 1.1 mg/dL (0.55-1.3)
[2024-06-09 10:10] LABS: PHOSPHOROUS 3.4 mg/dL (2.5-4.9)
[2024-06-09 10:11] LABS: ALBUMIN 1.9 g/dl (3.4-5.0); BILIRUBIN,TOTAL 0.4 mg/dL (0.2-1); BLOOD UREA NITROGEN 14.1 mg/dL (7-18); TOT PROT 7.6 g/dl (6.4-8.2)
[2024-06-09 10:13] LABS: CALCIUM 8.2 mg/dL (8.5-10.1)
[2024-06-09 10:14] LABS: MAGNESIUM 1.8 mg/dL (1.8-2.4)
[2024-06-09] MEDS: FUROSEMIDE 20 MG TABLET (FP) PO ONE (13:54)
[2024-06-09 18:27] VITALS: BP 149/86; PULSE 71; RESP 18; TEMP 99
[2024-06-10] MEDS ORDERED: FUROSEMIDE 40 MG TABLET (FP) PO SCH (10:00)
== END 2024-06-09 21:06 | disposition home or self-care (01) | DRG 853 ==
LOC: JER 12:43 → JERBED 15:37 → OBSVTOIN 17:52 → J4W 22:57 → JICU 05-13 12:17 → J4W 05-17 12:51 → J6S 05-23 15:39
PROVIDERS: ADMIT Internal Medicine; ATTEND Internal Medicine
PROC: 06HN33Z Insertion of Infusion Device into Left Femoral Vein, Percutaneous Approach (ICD-10-PCS; principal; 2024-05-13)
PROC: B54CZZA Ultrasonography of Left Lower Extremity Veins, Guidance (ICD-10-PCS; 2024-05-13)
PROC: 30233N1 Transfusion of Nonautologous Red Blood Cells into Peripheral Vein, Percutaneous Approach (ICD-10-PCS; 2024-05-14)
PROC: 0B5P3ZZ Destruction of Left Pleura, Percutaneous Approach (ICD-10-PCS; 2024-05-27)
PROC: 0WPBX0Z Removal of Drainage Device from Left Pleural Cavity, External Approach (ICD-10-PCS; 2024-06-02)
DX: A32.7 Listerial sepsis (principal); I26.99 Other pulmonary embolism without acute cor pulmonale; J18.9 Pneumonia, unspecified organism; R65.21 Severe sepsis with septic shock; N17.9 Acute kidney failure, unspecified; E87.1 Hypo-osmolality and hyponatremia; I24.89 Other forms of acute ischemic heart disease; J90 Pleural effusion, not elsewhere classified; J93.83 Other pneumothorax; I10 Essential (primary) hypertension; E11.65 Type 2 diabetes mellitus with hyperglycemia; E78.5 Hyperlipidemia, unspecified; R07.81 Pleurodynia; D64.9 Anemia, unspecified; I25.10 Atherosclerotic heart disease of native coronary artery without angina pectoris; I95.89 Other hypotension; I48.0 Paroxysmal atrial fibrillation; E04.1 Nontoxic single thyroid nodule; E88.09 Other disorders of plasma-protein metabolism, not elsewhere classified; D72.829 Elevated white blood cell count, unspecified; R00.0 Tachycardia, unspecified; E87.6 Hypokalemia; E87.70 Fluid overload, unspecified; Z95.0 Presence of cardiac pacemaker
CPT/HCPCS: 0241U-QW; 32557; 36415; 36430; 36600; 70450-TC; 70460-TC; 70496-TC; 71045-TC-FY; 71046-TC-FY; 71250-TC; 71275-TC; 76642-TC-RT; 76775-TC; 77065-TC; 80048; 80053; 80170; 81003; 81015; 82042; 82150; 82465; 82550; 82607; 82746; 82784; 82787; 82803; 82945; 82962; 83036; 83540; 83550; 83605; 83615; 83735; 83880; 83883; 83930; 83935; 83986; 84100; 84155; 84157; 84165; 84300; 84439; 84443; 84478; 84484; 85025; 85027; 85045; 85379; 85610; 85651; 85730; 86334; 86850; 86900; 86901; 86922; 87040; 87070; 87075; 87086; 87102; 87116; 87186; 87205; 87206; 87210; 87899; 88108; 88305-TC; 93005; 93010; 93306-TC; 93970-TC; 97116-GP; 99285-25; G0279-TC; G0378; J0131; J0282; J1644; J3490; P9058